=== PATIENT | male | born 1950 | race Caucasian/White ===

== ENCOUNTER 2019-01-10 19:12 | Inpatient (IN) | payer MEDICARE, OTHER ==
[2019-01-10] MEDS ORDERED: Albuterol 0.083% 2.5 MG/3 ML Neb Soln NEB ONE (20:02)
--- NOTE | 2019-01-10 20:07 | EDM.PDOC ---
ED HPI GENERAL MEDICAL PROBLEM - General Chief Complaint: Cardiovascular Problem Stated Complaint: [facility] Time Seen by Provider: 01/10/19 20:01 Source of Information: Reports: Patient, Family History Limitations: Reports: No Limitations - History of Present Illness INITIAL COMMENTS - FREE TEXT/NARRATIVE: 68 yo M w/ h/o COPD brought in via ambulance for SOB and confusion, feels like "I'm not getting enough air". He is chronically on O2 at home, 4L NC. He thinks he was 84% on O2 earlier today. Here, he was 100% on 4L O2 via nasal cannula- we have turned it down to 2L 02 and he is now 93%. He has a h/o of being air transported to [place] and has refused to be on lung transplant list. No other history is able to be obtained at this time as the patient is confused. Son told nursing that pt was acting more confused; pt is unaware of his confusion at this time. He is A+O x 3. - Related Data Allergies Allergy/AdvReac Type Severity Reaction Status Date / Time No Known Allergies Allergy Verified 05/23/18 13:54 Home Meds: Home Meds Ipratropium/Albuterol Sulfate [Iprat-Albut 0.5-3(2.5) mg/3 ml] 3 ml INH QID [History] Metoprolol Succinate 50 mg PO DAILY 05/23/18 [History] Pantoprazole [ProTONIX] 40 mg PO DAILY 05/23/18 [History] atorvaSTATin [Lipitor] 10 mg PO BEDTIME 05/23/18 [History] predniSONE [Prednisone] 20 mg PO DAILY 05/23/18 [History] Albuterol Sulfate [Albuterol Sulfate Hfa] 2 puff INH ASDIRECTED 01/10/19 [ History] Metoprolol Succinate 50 mg PO DAILY 01/10/19 [History] Ubidecarenone [Coq-10] 100 mg PO DAILY 01/10/19 [History] Past Medical History HEENT History: Reports: Impaired Vision Cardiovascular History: Reports: High Cholesterol, Hypertension Respiratory History: Reports: COPD Other Respiratory History: lung disease, wears continuous oxygen Gastrointestinal History: Reports: GERD - Past Surgical History GI Surgical History: Reports: Hernia Repair/Other Social & Family History - Family History Family Medical History: Noncontributory - Tobacco Use Smoking Status *Q: Former Smoker Used Tobacco, but Quit: Yes Month/Year Tobacco Last Used: 7 yrs - Caffeine Use Caffeine Use: Reports: Coffee, Tea - Recreational Drug Use Recreational Drug Use: No - Living Situation & Occupation Living situation: Reports: , with Spouse, with Family (2 sons) Occupation: Retired ED ROS GENERAL - Review of Systems Review Of Systems: Unable To Obtain (AMS) ED EXAM, GENERAL - Physical Exam Exam: See Below Exam Limited By: Altered Mental Status (confused; unable to get meaningful history) General Appearance: Alert (A+O x3; unable to make sense with giving history), Mild Distress Eye Exam: Bilateral Eye: EOMI, Normal Inspection, PERRL Ears: Normal External Exam, Hearing Grossly Normal Throat/Mouth: Normal Inspection, Normal Lips, Normal Teeth, Normal Gums, Normal Oropharynx, Normal Voice, No Airway Compromise Head: Atraumatic, Normocephalic Neck: Normal Inspection, Supple, Non-Tender, Full Range of Motion Respiratory/Chest: Chest Non-Tender, Respiratory Distress (mild to moderate), Wheezing (throughout lung cadet) GI/Abdominal: Normal Bowel Sounds, Soft, Non-Tender, No Organomegaly, No Distention, No Abnormal Bruit, No Mass Back Exam: Normal Inspection Neurological: Alert, Oriented (x3), Confused (unable to make sense with giving history) Psychiatric: Normal Affect, Normal Mood Course - Vital Signs Last Recorded V/S: Last Vital Signs Temp 97.6 F 01/10/19 19:40 Pulse 86 01/10/19 19:40 Resp 20 01/10/19 19:40 BP 154/119 H 01/10/19 19:40 Pulse Ox 96 01/10/19 20:09 - Orders/Labs/Meds Orders: Active Orders 24 hr Category Date Time Status Admission Status [Patient Status] [ADT] Routine ADT 01/10/19 22:38 Active BIPAP [RT BiPAP/CPAP] [RC] ASDIRECTED Care 01/10/19 22:38 Active RT Aerosol Therapy [RC] ASDIRECTED Care 01/10/19 20:02 Active CXR [Chest 2V] [CR] Stat Exams 01/10/19 20:04 Taken Head wo Cont [CT] Stat Exams 01/10/19 22:33 Ordered BLOOD GAS ARTERIAL [BG] Stat Lab 01/10/19 20:32 Results Labs: Laboratory Tests 01/10/19 01/10/19 01/10/19 Range/Units 19:30 19:30 20:32 WBC 12.25 H (4.23-9.07) K/mm3 RBC 5.48 (4.63-6.08) M/mm3 Hgb 15.3 (13.7-17.5) gm/L Hct 53.2 H (40.1-51.0) % MCV 97.1 H (79.0-92.2) fl MCH 27.9 (25.7-32.2) pg MCHC 28.8 L (32.2-35.5) g/dl RDW Std Deviation 50.3 H (35.1-43.9) fL Plt Count 145 L (163-337) K/mm3 MPV 11.7 (9.4-12.3) fl Neut % (Auto) 88.0 H (34.0-67.9) % Lymph % (Auto) 8.0 L (21.8-53.1) % [place] % (Auto) 3.3 L (5.3-12.2) % Eos % (Auto) 0.1 L (0.8-7.0) Baso % (Auto) 0.1 (0.1-1.2) % Neut # (Auto) 10.79 H (1.78-5.38) K/mm3 Lymph # (Auto) 0.98 L (1.32-3.57) K/mm3 [place] # (Auto) 0.40 (0.30-0.82) K/mm3 Eos # (Auto) 0.01 L (0.04-0.54) K/mm3 Baso # (Auto) 0.01 (0.01-0.08) K/mm3 Neutrophils % (Manual) 92 H (40-60) % Band Neutrophils % 0 (0-10) % Lymphocytes % (Manual) 3 L (20-40) % Atypical Lymphs % 0 % Monocytes % (Manual) 5 (2-10) % Eosinophils % (Manual) 0 L (0.8-7.0) % Basophils % (Manual) 0 L (0.2-1.2) Manual Slide Review Abnormal smear Platelet Estimate Adequate Plt Morphology Comment Normal Stomatocytes 3+ marked RBC Morph Comment Not Reportable Puncture Site Rt radial ABG pH 7.28 L (7.35-7.45) ABG pCO2 93.6 H* (35.0-45.0) mmHg ABG pO2 58.0 L (80.0-100.0) mmHg ABG HCO3 42.7 H (22.0-26.0) meq/L ABG O2 Saturation 89.0 L (96.0-97.0) % ABG Base Excess 10.5 H (-2-2.0) A-a Gradient 4 mmHg O2 Delivery Device Nasal cannula Oxygen Flow Rate 2.0 FiO2 28.00 (21.00-100.00) % Sodium 141 (136-145) mEq/L Potassium 5.7 H (3.5-5.1) mEq/L Chloride 99 (98-107) mEq/L Carbon Dioxide 45 H* (21-32) mEq/L Anion Gap 2.7 L (5-15) BUN 20 H (7-18) mg/dL Creatinine 1.1 (0.7-1.3) mg/dL Est Cr Clr Drug Dosing 67.29 mL/min Estimated GFR (MDRD) > 60 (>60) mL/min BUN/Creatinine Ratio 18.2 H (14-18) Glucose 107 (80-115) mg/dL Calcium 9.6 (8.5-10.1) mg/dL Total Bilirubin 0.5 (0.2-1.0) mg/dL AST 14 L (15-37) U/L ALT 35 (16-63) U/L Alkaline Phosphatase 50 (46-116) U/L Total Protein 7.3 (6.4-8.2) g/dl Albumin 3.7 (3.4-5.0) g/dl Globulin 3.6 gm/dL Albumin/Globulin Ratio 1.0 (1-2) Mycoplasma pneumon IgM Negative (NEGATIVE) Meds: Medications Discontinued Medications Generic Name Dose Route Start Last Admin Trade Name Freq PRN Reason Stop Dose Admin Albuterol 2.5 mg 01/10/19 20:02 01/10/19 20:08 Proventil Neb Soln NEB 01/10/19 20:03 2.5 mg ONETIME ONE Administration Methylprednisolone Sodium Succinate 60 mg 01/10/19 22:33 Solu-Medrol IVPUSH 01/10/19 22:34 ONETIME ONE - Re-Assessments/Exams Free Text/Narrative Re-Assessment/Exam: 01/10/19 20:05 I have ordered CBC, CMP, ABG, Mycoplasma Albuterol nebulizer treatment 2V CXR pending 01/10/19 20:47 CBC shows elevated WBC at 12.25, no bandemia. CMP shows elevated K at 5.7 and increased CO2 45 CXR reviewed by myself and Dr. Brooks, nothing acute seen ABG and Mycoplasma pending 01/10/19 21:[address] Brooks and myself, shows acute on chronic respiratory acidosis with hypoxia. COPD exacerbation. Will start BiPAP Mycoplasma negative There doesn't seem to be a clear source for his new onset confusion. Will call our hospitalist to see if he can get a full workup for his confusion. 01/10/19 22:[address] Park and he has accepted the patient for COPD exacerbation and AMS. He requests he get a head CT, 60mg Solumedrol, and that he be admitted to ICU. Departure - Departure Time of Disposition: 22:36 Disposition: Admitted As Inpatient 67 Condition: Fair Clinical Impression: Hypoxia, COPD exacerbation, Altered mental status, Hypercapnia Referrals: Debi Braxton PA [Primary Care Provider] - Forms: ED Department Discharge - My Orders Last 24 Hours: My Active Orders 01/10/19 20:02 RT Aerosol Therapy [RC] ASDIRECTED 01/10/19 20:04 CXR [Chest 2V] [CR] Stat 01/10/19 20:32 BLOOD GAS ARTERIAL [BG] Stat 01/10/19 22:33 Head wo Cont [CT] Stat 01/10/19 22:38 Admission Status [Patient Status] [ADT] Routine BIPAP [RT BiPAP/CPAP] [RC] ASDIRECTED - Assessment/Plan Last 24 Hours: My Active Orders 01/10/19 20:02 RT Aerosol Therapy [RC] ASDIRECTED 01/10/19 20:04 CXR [Chest 2V] [CR] Stat 01/10/19 20:32 BLOOD GAS ARTERIAL [BG] Stat 01/10/19 22:33 Head wo Cont [CT] Stat 01/10/19 22:38 Admission Status [Patient Status] [ADT] Routine BIPAP [RT BiPAP/CPAP] [RC] ASDIRECTED
[2019-01-10] MEDS ORDERED: methylPREDNISolone Sodium Succinate 40 MG/1 ML SDV IVPUSH ONE (22:33)
[2019-01-10] MEDS ORDERED: Metoprolol Tartrate 5 MG/5 ML SDV IVPUSH PRN (23:11)
[2019-01-10] MEDS ORDERED: LORazepam 2 MG/ML SDV IVPUSH PRN (23:11)
[2019-01-10] MEDS ORDERED: hydrALAZINE 20 MG/ML SDV IVPUSH PRN (23:11)
[2019-01-10] MEDS ORDERED: Diltiazem 50 MG/10 ML SDV IVPUSH PRN (23:13)
[2019-01-10] MEDS ORDERED: Morphine 2 MG/ML Syringe IVPUSH PRN (23:20)
[2019-01-10] MEDS ORDERED: Acetaminophen/HYDROcodone 325-5 MG Tab PO PRN (23:20)
[2019-01-10] MEDS ORDERED: Ondansetron 4 MG/2 ML SDV IV PRN (23:24)
[2019-01-10] MEDS ORDERED: Polyethylene Glycol 3350 Powder 17 GM Packet PO PRN (23:24)
[2019-01-10] MEDS ORDERED: Docusate Sodium 100 MG Cap PO PRN (23:24)
[2019-01-10] MEDS ORDERED: Temazepam 7.5 MG Cap PO PRN (23:24)
[2019-01-10] MEDS ORDERED: LORazepam 2 MG/ML SDV IV PRN (23:24)
[2019-01-10] MEDS ORDERED: Pantoprazole 40 MG Vial IVPUSH ONE (23:24)
[2019-01-10] MEDS ORDERED: Bisacodyl 5 MG Tab PO PRN (23:24)
[2019-01-10] MEDS ORDERED: Albuterol/Ipratropium 3.0-0.5 MG/3 ML Neb Soln NEB PRN (23:24)
[2019-01-10] MEDS ORDERED: Azithromycin 250 MG in Sodium Chloride 0.9% 250 ML IV ONE (23:31)
[2019-01-10] MEDS ORDERED: Non-Formulary Medication 1 Each (Acetaminophen 1,000 MG) PO PRN (23:36)
[2019-01-10] MEDS ORDERED: 50% Dextrose in Water 50 ML Syringe IVPUSH PRN (23:44)
[2019-01-11] MEDS: methylPREDNISolone Sodium Succinate 40 MG/1 ML SDV IVPUSH SCH ×4 (04:08→21:38)
[2019-01-11] MEDS ORDERED: ALENDRONATE SODIUM 5 MG PO SCH (06:00)
[2019-01-11] MEDS: guaiFENesin/Dextromethorphan 100-10 MG/5 ML Soln 5 ML Cup PO SCH ×4 (06:33→21:37)
[2019-01-11] MEDS: Pantoprazole 40 MG Tab.CR PO SCH (06:34)
--- NOTE | 2019-01-11 06:55 | CR ---
Chest: Two views of the chest were obtained. Comparison: Prior chest x-ray of 05/23/18. Diaphragms are flattened on the lateral view compatible with emphysematous change. Mildly increased lung markings are seen which appear to be chronic. No acute parenchymal change is appreciated. Heart size appears within normal limits. Upper mediastinum is normal. Bony structures show slight degenerative endplate spurring throughout the spine. Impression: 1. Emphysematous change. 2. Other chronic appearing changes as noted above. Diagnostic code #3
--- NOTE | 2019-01-11 06:55 | CT ---
Head CT Technique: Multiple axial sections through the brain were obtained. Intravenous contrast was not utilized. Comparison: No prior intracranial imaging. Findings: Ventricles along the basal cisterns and sulci over the convexities appear mildly prominent. No abnormal parenchymal densities are seen. No evidence of intracranial hemorrhage. No midline shift or mass effect is seen. Bone window settings were reviewed which show the visualized sinuses to appear clear. No acute calvarial abnormality is seen. Impression: 1. Nothing acute is seen on noncontrast head CT exam. Diagnostic code #1 I agree with preliminary report from [facility], finalized on 01/11/19, 1:36 AM Central Time
[2019-01-11] MEDS: Glycopyrrolate 15.6 MCG Cap.W.Dev Kit of 6 IH SCH ×2 (06:58→20:13)
--- NOTE | 2019-01-11 07:44 | PCM.HP ---
H&P History of Present Illness - General Date of Service: 01/11/19 Admit Problem/Dx: Admission Diagnosis/Problem Admission Diagnosis/Problem COPD, Moderate chronic obstructive pulmonary disease Source of Information: Patient, Old Records, Provider, RN, RN Notes Reviewed History Limitations: Reports: No Limitations - History of Present Illness Initial Comments - Free Text/Narative: Isiah Dowling is a 68 yo male who presents via ambulance to our ED the evening of 01/10/19 with a complaint of shortness of breath and confusion. 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 He reportedly took his saturations earlier and was found to be 84% on O2. On presentation he was 100% on 4 L via cannula and this was turned down to 2 L which resulted 93% saturations. On his last ED visit he was transported via air ambulance to [place] after being intubated. Has refused to be on a lung transplant list. He is quite confused in the ED and son reports this is worse than normal. He is unaware of how confused he is. In the ED temperature is 97.6 Fahrenheit. Pulse 86. Respirations 20. Blood pressure 154/119. Pulse ox 96%. Labs are obtained: WBC is elevated at 12.25. Hemoglobin 15.3. Hematocrit 53.2. He is macrocytic. Platelet are low at 154, 000. Neutrophils are elevated at 80%. There is no bandemia. ABGs obtained in the right radial showing a pH of 7.28. PCO2 is very high at 93.6. PO2 is 58.0. HCO3 is 42.7. O2 saturation is 89%. This is well on 2 L via nasal cannula. Sodium is 141. Potassium 5.7. Chloride 99. Code accident 45. Anion gap is 2.7. BUN is 20. Creatinine 1.1. EGFR greater than 60. Glucose 107. Calcium 9.6. Bilirubin 0.5. AST is 14, ALT 35, alkaline phosphatase 50. Protein 7.3. Albumin 3.7. Given albuterol nebulizer as well as 60 mg IV push of Solu-Medrol. Mycoplasma was obtained and is negative. Chest x-rays obtained and interpreted by Dr. Aparicio as "1. Emphysematous change. 2. Other chronic appearing changes as noted above." Head CT is obtained showing nothing acute. He carries a history of impaired vision, HLD, HTN, COPD, continues O2 use, GERD. He is a former smoker. His PCP is Neville Braxton PA-C. - Related Data Allergies/Adverse Reactions: Allergies Allergy/AdvReac Type Severity Reaction Status Date / Time No Known Allergies Allergy Verified 01/10/19 23:36 Home Medications: Home Meds Ipratropium/Albuterol Sulfate [Iprat-Albut 0.5-3(2.5) mg/3 ml] 3 ml INH QID [History] Metoprolol Succinate 50 mg PO DAILY 05/23/18 [History] Pantoprazole [ProTONIX] 40 mg PO DAILY 05/23/18 [History] atorvaSTATin [Lipitor] 10 mg PO BEDTIME 05/23/18 [History] predniSONE [Prednisone] 20 mg PO DAILY 05/23/18 [History] Acetaminophen [Tylenol Extra Strength] 1,000 mg PO DAILY PRN 01/10/19 [History] Albuterol Sulfate [Albuterol Sulfate Hfa] 2 puff INH ASDIRECTED 01/10/19 [ History] Alendronate Sodium [Alendronate] 5 mg PO ACBREAKFAST 01/10/19 [History] Ubidecarenone [Coq-10] 100 mg PO DAILY 01/10/19 [History] Past Medical History HEENT History: Reports: Impaired Vision Cardiovascular History: Reports: High Cholesterol, Hypertension Respiratory History: Reports: COPD Other Respiratory History: lung disease, wears continuous oxygen Gastrointestinal History: Reports: GERD Musculoskeletal History: Reports: None Neurological History: Reports: None - Past Surgical History GI Surgical History: Reports: Hernia Repair/Other Social & Family History - Family History Family Medical History: Noncontributory - Tobacco Use Smoking Status *Q: Former Smoker Used Tobacco, but Quit: Yes Month/Year Tobacco Last Used: 7 yrs Second Hand Smoke Exposure: Yes - Caffeine Use Caffeine Use: Reports: Coffee, Tea - Alcohol Use Days Per Week of Alcohol Use: 1 Number of Drinks Per Day: 0 Total Drinks Per Week: 0 - Recreational Drug Use Recreational Drug Use: No - Living Situation & Occupation Living situation: Reports: , with Spouse, with Family (2 sons) Occupation: Retired H&P Review of Systems - Review of Systems: Review Of Systems: See Below General: Reports: Weakness. Denies: Fever, Chills, Malaise, Fatigue HEENT: Reports: No Symptoms. Denies: Headaches, Sore Throat, Visual Changes Pulmonary: Reports: Shortness of Breath, Wheezing. Denies: Pleuritic Chest Pain , Cough, Sputum Cardiovascular: Reports: Dyspnea on Exertion, Edema. Denies: Chest Pain, Palpitations, Lightheadedness Gastrointestinal: Reports: No Symptoms. Denies: Abdominal Pain, Constipation, Diarrhea, Nausea, Vomiting Genitourinary: Reports: No Symptoms. Denies: Pain Musculoskeletal: Reports: No Symptoms Skin: Reports: No Symptoms. Denies: Cyanosis Psychiatric: Reports: No Symptoms. Denies: Confusion (resolved on floor ) Neurological: Reports: No Symptoms Hematologic/Lymphatic: Reports: No Symptoms Immunologic: Reports: No Symptoms Exam - Exam Exam: See Below - Vital Signs Vital Signs: Last Vital Signs Temp 97.2 F 01/11/19 04:00 Pulse 84 01/10/19 23:14 Resp 18 01/11/19 04:00 BP 137/92 H 01/11/19 04:00 Pulse Ox 97 01/11/19 06:58 Weight: 222 lb - Exam Quality Assessment: Supplemental Oxygen (BiPAP), DVT Prophylaxis General: Alert, Oriented, Cooperative. No: Mild Distress HEENT: Conjunctiva Clear, EACs Clear, EOMI, Hearing Intact, Mucosa Moist & [place] , Nares Patent, Normal Nasal Septum, PERRLA Neck: Supple, Trachea Midline Lungs: Normal Respiratory Effort, Decreased Breath Sounds, Wheezing. No: Crackles, Rhonchi Cardiovascular: Regular Rate, Regular Rhythm GI/Abdominal Exam: Normal Bowel Sounds, Soft, Non-Tender, No Distention, No Abnormal Bruit (Male) Exam: Deferred Rectal (Males) Exam: Deferred Back Exam: Normal Inspection, Full Range of Motion Extremities: Normal Inspection, Normal Range of Motion, Non-Tender, Normal Capillary Refill, Pedal Edema (1+) Peripheral Pulses: 1+: Dorsalis Pedis (L), Dorsalis Pedis (R), 2+: Radial (L), Radial (R) Skin: Warm, Dry, Intact Neurological: Cranial Nerves Intact (grossly) Neuro Extensive - Mental Status: Alert, Oriented x3, Normal Mood/Affect - Patient Data Lab Results Last 24 hrs: Laboratory Results - last 24 hr 01/10/19 01/10/19 01/10/19 Range/Units 19:30 19:30 20:32 WBC 12.25 H (4.23-9.07) K/mm3 RBC 5.48 (4.63-6.08) M/mm3 Hgb 15.3 (13.7-17.5) gm/L Hct 53.2 H (40.1-51.0) % MCV 97.1 H (79.0-92.2) fl MCH 27.9 (25.7-32.2) pg MCHC 28.8 L (32.2-35.5) g/dl RDW Std Deviation 50.3 H (35.1-43.9) fL Plt Count 145 L (163-337) K/mm3 MPV 11.7 (9.4-12.3) fl Neut % (Auto) 88.0 H (34.0-67.9) % Lymph % (Auto) 8.0 L (21.8-53.1) % [place] % (Auto) 3.3 L (5.3-12.2) % Eos % (Auto) 0.1 L (0.8-7.0) Baso % (Auto) 0.1 (0.1-1.2) % Neut # (Auto) 10.79 H (1.78-5.38) K/mm3 Lymph # (Auto) 0.98 L (1.32-3.57) K/mm3 [place] # (Auto) 0.40 (0.30-0.82) K/mm3 Eos # (Auto) 0.01 L (0.04-0.54) K/mm3 Baso # (Auto) 0.01 (0.01-0.08) K/mm3 Neutrophils % (Manual) 92 H (40-60) % Band Neutrophils % 0 (0-10) % Lymphocytes % (Manual) 3 L (20-40) % Atypical Lymphs % 0 % Monocytes % (Manual) 5 (2-10) % Eosinophils % (Manual) 0 L (0.8-7.0) % Basophils % (Manual) 0 L (0.2-1.2) Manual Slide Review Abnormal smear Platelet Estimate Adequate Plt Morphology Comment Normal Stomatocytes 3+ marked RBC Morph Comment Not Reportable Puncture Site Rt radial ABG pH 7.28 L (7.35-7.45) ABG pCO2 93.6 H* (35.0-45.0) mmHg ABG pO2 58.0 L (80.0-100.0) mmHg ABG HCO3 42.7 H (22.0-26.0) meq/L ABG O2 Saturation 89.0 L (96.0-97.0) % ABG Base Excess 10.5 H (-2-2.0) Gianni Test A-a Gradient 4 mmHg O2 Delivery Device Nasal cannula Oxygen Flow Rate 2.0 FiO2 28.00 (21.00-100.00) % PEEP cmH20 Pressure Support cmH2O Sodium 141 (136-145) mEq/L Potassium 5.7 H (3.5-5.1) mEq/L Chloride 99 (98-107) mEq/L Carbon Dioxide 45 H* (21-32) mEq/L Anion Gap 2.7 L (5-15) BUN 20 H (7-18) mg/dL Creatinine 1.1 (0.7-1.3) mg/dL Est Cr Clr Drug Dosing 67.29 mL/min Estimated GFR (MDRD) > 60 (>60) mL/min BUN/Creatinine Ratio 18.2 H (14-18) Glucose 107 (80-115) mg/dL Calcium 9.6 (8.5-10.1) mg/dL Magnesium (1.8-2.4) mg/dl Total Bilirubin 0.5 (0.2-1.0) mg/dL AST 14 L (15-37) U/L ALT 35 (16-63) U/L Alkaline Phosphatase 50 (46-116) U/L C-Reactive Protein (<1.0) mg/dL Total Protein 7.3 (6.4-8.2) g/dl Albumin 3.7 (3.4-5.0) g/dl Globulin 3.6 gm/dL Albumin/Globulin Ratio 1.0 (1-2) Mycoplasma pneumon IgM Negative (NEGATIVE) 01/11/19 01/11/19 01/11/19 Range/Units 05:25 05:25 06:40 WBC 11.05 H (4.23-9.07) K/mm3 RBC 5.00 (4.63-6.08) M/mm3 Hgb 14.1 (13.7-17.5) gm/L Hct 48.2 (40.1-51.0) % MCV 96.4 H (79.0-92.2) fl MCH 28.2 (25.7-32.2) pg MCHC 29.3 L (32.2-35.5) g/dl RDW Std Deviation 49.3 H (35.1-43.9) fL Plt Count 132 L (163-337) K/mm3 MPV 12.3 (9.4-12.3) fl Neut % (Auto) 94.2 H (34.0-67.9) % Lymph % (Auto) 4.3 L (21.8-53.1) % [place] % (Auto) 1.0 L (5.3-12.2) % Eos % (Auto) 0 L (0.8-7.0) Baso % (Auto) 0.1 (0.1-1.2) % Neut # (Auto) 10.42 H (1.78-5.38) K/mm3 Lymph # (Auto) 0.47 L (1.32-3.57) K/mm3 [place] # (Auto) 0.11 L (0.30-0.82) K/mm3 Eos # (Auto) 0.00 L (0.04-0.54) K/mm3 Baso # (Auto) 0.01 (0.01-0.08) K/mm3 Neutrophils % (Manual) (40-60) % Band Neutrophils % (0-10) % Lymphocytes % (Manual) (20-40) % Atypical Lymphs % % Monocytes % (Manual) (2-10) % Eosinophils % (Manual) (0.8-7.0) % Basophils % (Manual) (0.2-1.2) Manual Slide Review Abnormal smear Platelet Estimate Plt Morphology Comment Stomatocytes RBC Morph Comment Puncture Site Rt radial ABG pH 7.30 L (7.35-7.45) ABG pCO2 92.1 H* (35.0-45.0) mmHg ABG pO2 100.0 (80.0-100.0) mmHg ABG HCO3 43.6 H (22.0-26.0) meq/L ABG O2 Saturation 96.1 (96.0-97.0) % ABG Base Excess 12.8 H (-2-2.0) Gianni Test Positive A-a Gradient 41 mmHg O2 Delivery Device Bipap Oxygen Flow Rate FiO2 0.00 L (21.00-100.00) % PEEP 5.0 cmH20 Pressure Support 14.0 cmH2O Sodium 142 (136-145) mEq/L Potassium 5.0 (3.5-5.1) mEq/L Chloride 102 (98-107) mEq/L Carbon Dioxide 42 H* (21-32) mEq/L Anion Gap 3.0 L (5-15) BUN 30 H (7-18) mg/dL Creatinine 0.9 (0.7-1.3) mg/dL Est Cr Clr Drug Dosing 82.24 mL/min Estimated GFR (MDRD) > 60 (>60) mL/min BUN/Creatinine Ratio 33.3 H (14-18) Glucose 155 H (80-115) mg/dL Calcium 9.3 (8.5-10.1) mg/dL Magnesium 2.3 (1.8-2.4) mg/dl Total Bilirubin (0.2-1.0) mg/dL AST (15-37) U/L ALT (16-63) U/L Alkaline Phosphatase (46-116) U/L C-Reactive Protein < 0.2 (<1.0) mg/dL Total Protein (6.4-8.2) g/dl Albumin (3.4-5.0) g/dl Globulin gm/dL Albumin/Globulin Ratio (1-2) Mycoplasma pneumon IgM (NEGATIVE) Result Diagrams: 01/11/19 05:25 01/11/19 05:25 - Problem List (1) Altered mental status SNOMED Code(s): 642328276 ICD Code: R41.82 - ALTERED MENTAL STATUS, UNSPECIFIED Status: Acute Priority: High Current Visit: Yes Qualifiers: Altered mental status type: unspecified Qualified Code(s): R41.82 - Altered mental status, unspecified (2) COPD exacerbation SNOMED Code(s): 658221395 ICD Code: J44.1 - CHRONIC OBSTRUCTIVE PULMONARY DISEASE W (ACUTE) EXACERBATION Status: Acute Priority: High Current Visit: Yes (3) Hypercapnia SNOMED Code(s): 42278466 ICD Code: R06.89 - OTHER ABNORMALITIES OF BREATHING Status: Acute Priority: High Current Visit: Yes (4) Hypoxia SNOMED Code(s): 361871745 ICD Code: R09.02 - HYPOXEMIA Status: Acute Priority: High Current Visit : Yes Problem List Initiated/Reviewed/Updated: Yes Orders Last 24hrs: Active Orders 24 hr Category Date Time Status Admission Status [Patient Status] [ADT] Routine ADT 01/10/19 22:38 Active Ambulate [RC] ASDIRECTED Care 01/10/19 23:14 Active Antiembolic Devices [RC] , Care 01/10/19 23:24 Active BIPAP [RT BiPAP/CPAP] [RC] .ASDIRECTED Care 01/10/19 22:38 Active Cardiac Monitoring [RC] . DIRECTED Care 01/10/19 23:14 Active Height and Weight [RC] 04 Care 01/10/19 23:14 Active Intake and Output [RC] 04,16 Care 01/10/19 23:14 Active Oxygen Therapy [RC] PRN Care 01/10/19 23:14 Active Pulse Oximetry [RC] .ASDIRECTED Care 01/10/19 23:15 Active RT Aerosol Therapy [RC] .ASDIRECTED Care 01/10/19 23:38 Active RT Aerosol Therapy [RC] ASDIRECTED Care 01/10/19 23:26 Active Up ad Rosalinda [RC] .ASDIRECTED Care 01/10/19 23:14 Active VTE/DVT Education [RC] 09,21 Care 01/10/19 23:14 Active Vital Signs [RC] Q4HR Care 01/10/19 23:14 Active Consult to Case Management/[place] Helper [CONS] Cons 01/10/19 23:24 Active Routine Consult to Spiritual Care [CONS] Routine Cons 01/10/19 23:24 Active OT Evaluation and Treatment [CONS] Routine Cons 01/10/19 23:24 Active PT Evaluation and Treatment [CONS] Routine Cons 01/10/19 23:24 Active Respiratory Care Assess and Treatment [CONS] Routine Cons 01/10/19 23:24 Active Regular Diet [DIET] Diet 01/10/19 Dinner Active BASIC METABOLIC PANEL,BMP [CHEM] AM Lab 01/12/19 05:11 Ordered BASIC METABOLIC PANEL,BMP [CHEM] AM Lab 01/13/19 05:11 Ordered BASIC METABOLIC PANEL,BMP [CHEM] AM Lab 01/14/19 05:11 Ordered BLOOD GAS ARTERIAL [BG] DAILY Lab 01/12/19 07:00 Ordered BLOOD GAS ARTERIAL [BG] DAILY Lab 01/13/19 07:00 Ordered C-REACTIVE PROTEIN [CHEM] AM Lab 01/12/19 05:11 Ordered C-REACTIVE PROTEIN [CHEM] AM Lab 01/13/19 05:11 Ordered C-REACTIVE PROTEIN [CHEM] AM Lab 01/14/19 05:11 Ordered CULTURE SPUTUM + SMEAR [RM] Stat Lab 01/10/19 23:24 Ordered MAGNESIUM [CHEM] AM Lab 01/12/19 05:11 Ordered MAGNESIUM [CHEM] AM Lab 01/13/19 05:11 Ordered MAGNESIUM [CHEM] AM Lab 01/14/19 05:11 Ordered RESPIRATORY PANEL Stat Lab 01/11/19 00:14 Received STREP PNEUMONIAE ANTIGEN [MREF] Stat Lab 01/11/19 07:00 Received Acetaminophen [Tylenol] Med 01/10/19 23:20 Active 650 mg PO Q4H PRN Acetaminophen/HYDROcodone [[place] 325-5 MG] Med 01/10/19 23:20 Active 1 tab PO Q4H PRN Albuterol/Ipratropium [DuoNeb 3.0-0.5 MG/3 ML] Med 01/11/19 08:00 Active 3 ml NEB BIDRT Albuterol/Ipratropium [DuoNeb 3.0-0.5 MG/3 ML] Med 01/10/19 23:24 Active 3 ml NEB Q4H PRN Azithromycin [Zithromax] Med 01/11/19 09:00 Active 250 mg PO DAILY Bisacodyl [Dulcolax] Med 01/10/19 23:24 Active 5 mg PO DAILY PRN Dextromethorphan/guaiFENesin [Robitussin DM] Med 01/11/19 07:00 Active 10 ml PO TID@0700,1400,2100 Dextrose 50% in Water Med 01/10/19 23:44 Active 50 ml IVPUSH ASDIRECTED PRN Diltiazem [Cardizem] Med 01/10/19 23:13 Active 10 mg IVPUSH Q4H PRN Docusate Sodium [Colace] Med 01/10/19 23:24 Active 100 mg PO BID PRN Docusate Sodium/Sennosides [Senna Plus] Med 01/10/19 23:24 Active 1 tab PO BID PRN Glycopyrrolate [Seebri Neohaler] Med 01/11/19 06:00 Active 15.6 mcg IH BIDRT Insulin Lispro [HumaLOG] Med 01/11/19 07:00 Active See Protocol SUBCUT QIDACANDBED LORazepam [Ativan] Med 01/10/19 23:24 Active 1 mg IV Q6H PRN LORazepam [Ativan] Med 01/10/19 23:11 Active 2 mg IVPUSH Q4H PRN Metoprolol Succinate [Toprol XL] Med 01/11/19 09:00 Active 50 mg PO DAILY Morphine Med 01/10/19 23:20 Active 2 mg IVPUSH Q2H PRN Ondansetron [Zofran] Med 01/10/19 23:24 Active 4 mg IV Q6H PRN Pantoprazole [ProTONIX] Med 01/11/19 07:00 Active 40 mg PO DAILY@0700 Patient's Own Medication [Ptom] Med 01/11/19 09:00 Active 0 each PO DAILY Pharmacy to Dose - Magnesium R [Pharmacy to Dose - Med 01/10/19 23:15 Active Magnesium Replacement] 1 dose .XX ASDIRECTED PRN Pharmacy to Dose - Potassium R [Pharmacy to Dose - Med 01/10/19 23:15 Active Potassium Replacement] 1 dose .XX ASDIRECTED PRN Polyethylene Glycol 3350 [MiraLAX] Med 01/10/19 23:24 Active 17 gm PO DAILY PRN Saccharomyces Boulardii [Florastor] Med 01/11/19 09:00 Active 250 mg PO DAILY Simvastatin [Zocor] Med 01/11/19 21:00 Active 10 mg PO BEDTIME Temazepam [Restoril] Med 01/10/19 23:24 Active 7.5 mg PO BEDTIME PRN Terbutaline [Brethine] Med 01/11/19 09:00 Active 2.5 mg PO BID hydrALAZINE [Apresoline] Med 01/10/19 23:11 Active 20 mg IVPUSH Q4H PRN methylPREDNISolone Sod Succ [Solu-MEDROL] Med 01/11/19 04:30 Active 80 mg IVPUSH Q6H Sequential Compression Device [OM.PC] Per Unit Routine Oth 01/10/19 23:15 Ordered Resuscitation Status Routine Resus Stat 01/10/19 23:11 Ordered Medication Orders Acetaminophen (Tylenol) 650 mg PO Q4H PRN PRN Reason: Pain (Mild 1-3)/fever Hydrocodone Bitart/Acetaminophen ([place] 325-5 Mg) 1 tab PO Q4H PRN PRN Reason: Pain (moderate 4-6) Albuterol/Ipratropium (Duoneb 3.0-0.5 Mg/3 Ml) 3 ml NEB Q4H PRN PRN Reason: Shortness Of Breath/wheezing Albuterol/Ipratropium (Duoneb 3.0-0.5 Mg/3 Ml) 3 ml NEB BIDRT [facility] Azithromycin (Zithromax) 250 mg PO DAILY [facility] Stop: 01/14/19 09:01 Bisacodyl (Dulcolax) 5 mg PO DAILY PRN PRN Reason: Constipation Dextrose/Water (Dextrose 50% In Water) 50 ml IVPUSH ASDIRECTED PRN PRN Reason: Hypoglycemia Diltiazem HCl (Cardizem) 10 mg IVPUSH Q4H PRN PRN Reason: Tachycardia Docusate Sodium (Colace) 100 mg PO BID PRN PRN Reason: Constipation Glycopyrrolate (Seebri Neohaler) 15.6 mcg IH BIDRT [facility] Last Admin: 01/11/19 06:58 Dose: 1 cap Guaifenesin/Phenylephrine HCl (Robitussin Dm) 10 ml PO TID@0700,1400,2100 [facility] Last Admin: 01/11/19 06:33 Dose: 10 ml Hydralazine HCl (Apresoline) 20 mg IVPUSH Q4H PRN PRN Reason: Hypertension Insulin Human Lispro (Humalog) 0 unit SUBCUT QIDACANDBED [facility]; Protocol Lorazepam (Ativan) 2 mg IVPUSH Q4H PRN PRN Reason: Seizures Lorazepam (Ativan) 1 mg IV Q6H PRN PRN Reason: Anxiety Magnesium Sulfate (Pharmacy To Dose - Magnesium Replacement) 1 dose .XX ASDIRECTED PRN PRN Reason: RX TO WATCH MAG LEVELS Methylprednisolone Sodium Succinate (Solu-Medrol) 80 mg IVPUSH Q6H [facility] Last Admin: 01/11/19 04:08 Dose: 80 mg Metoprolol Succinate (Toprol Xl) 50 mg PO DAILY [facility] Morphine Sulfate (Morphine) 2 mg IVPUSH Q2H PRN PRN Reason: Dyspnea Stop: 01/15/19 23:23 Ondansetron HCl (Zofran) 4 mg IV Q6H PRN PRN Reason: Nausea/Vomiting Pantoprazole Sodium (Protonix) 40 mg PO DAILY@0700 [facility] Last Admin: 01/11/19 06:34 Dose: 40 mg Ubidecarenone 100 Mg (Ptom) 0 each PO DAILY [facility] Polyethylene Glycol (Miralax) 17 gm PO DAILY PRN PRN Reason: Constipation Potassium Chloride (Pharmacy To Dose - Potassium Replacement) 1 dose .XX ASDIRECTED PRN PRN Reason: RX TO WATCH K LEVELS Saccharomyces Boulardii (Florastor) 250 mg PO DAILY [facility] Senna/Docusate Sodium (Senna Plus) 1 tab PO BID PRN PRN Reason: Constipation Simvastatin (Zocor) 10 mg PO BEDTIME BETTY Temazepam (Restoril) 7.5 mg PO BEDTIME PRN PRN Reason: Sleep Terbutaline Sulfate (Brethine) 2.5 mg PO BID [facility] Stop: 01/12/19 21:01 Assessment/Plan Comment:: I/P: Acute: COPD exacerbation with hypoxia -Hx/o severe COPD; Was intubated last ED visit -Chronically on 4L O2 -Reportedly refused to be placed on lung transplant list -Reported worsening dyspnea in ED -ABG in ED: pH of 7.28. PCO2 93.6. PO2 58.0. HCO3 42.7. O2 saturation 89 %. This is well on 2 L via nasal cannula. -ABG on Floor: PH 7.30, PCO2 92.1, PO2 100, HCO3 43.6, O2 saturation 96.1 while on BiPAP -60mg solumedrol given in ED -> continue 80mg Q6Hr -Duonebs/albuterol nebs scheduled and PRN -Azithromycin x 4 doses -TID robitussin DM scheduled -Glycopyrrolate 15.6 mcg IH BID -Terbutaline 2.5mg PO BID x4 doses -CXR: Emphysematous change with nothing acute -VRP pending -Mycoplasma negative. -Strep pneumo pending -O2 as needed -Sputum culture ordered -Start BiPAP -Pro-BNP 96 -Consult RT -Start IS/acapella once off BiPAP -WBC 12.25-->11.05; CRP >0.2 -Probiotic AMS -Family reports more confused than normal -Patient unaware how confused he is -Likely 2/2 above -Head CT negative Chronic: Impaired vision HLD HTN COPD Continuous O2 use at 4L GERD Plan: Admit to ICU Other orders as above Home medications as indicated PT/OT Obtain old records including PFT CM/SW for discharge planning Routine AM labs DVT Prophylaxis: SCDs GI prophylaxis: Home PPI Spiritual care consult Code status: Full code; PCP: Debi Braxton
[2019-01-11] MEDS: Albuterol/Ipratropium 3.0-0.5 MG/3 ML Neb Soln NEB SCH ×2 (08:41→20:13)
[2019-01-11] MEDS: Azithromycin 250 MG Tab PO SCH (08:52)
[2019-01-11] MEDS: Saccharomyces Boulardii (Probiotic) 250 MG Cap PO SCH (08:53)
[2019-01-11] MEDS: Metoprolol Succinate 50 MG Tab.ER PO SCH (08:53)
[2019-01-11] MEDS: UBIDECARENONE 100 MG PO SCH (08:53)
[2019-01-11] MEDS ORDERED: Tiotropium Inhaler 18 MCG Inhalation Powder Cap Kit of 5 INH SCH (09:00)
[2019-01-11] MEDS ORDERED: Non-Formulary Medication 1 Each (Ubidecarenone 100 MG) PO SCH (09:00)
[2019-01-11] MEDS: Insulin Lispro 100 Units/ML 3 ML Vial SUBCUT SCH ×4 (10:20→21:38)
[2019-01-11] MEDS ORDERED: HYDROmorphone 1 MG/ML Syringe IVPUSH PRN (12:47)
[2019-01-11] MEDS: Acetaminophen 325 MG Tab PO PRN (16:21)
[2019-01-11] MEDS: Simvastatin 10 MG Tab PO SCH ×2 (19:44→21:37)
[2019-01-11] MEDS ORDERED: Non-Formulary Medication 1 Each (Atorvastatin 10 MG) PO SCH (21:00)
[2019-01-12] MEDS: Albuterol/Ipratropium 3.0-0.5 MG/3 ML Neb Soln NEB SCH ×2 (05:50→20:03)
[2019-01-12] MEDS: Glycopyrrolate 15.6 MCG Cap.W.Dev Kit of 6 IH SCH ×2 (05:54→20:03)
[2019-01-12] MEDS: guaiFENesin/Dextromethorphan 100-10 MG/5 ML Soln 5 ML Cup PO SCH ×3 (06:00→20:41)
[2019-01-12] MEDS: Insulin Lispro 100 Units/ML 3 ML Vial SUBCUT SCH ×4 (06:01→21:11)
[2019-01-12] MEDS: methylPREDNISolone Sodium Succinate 40 MG/1 ML SDV IVPUSH SCH ×2 (06:01→15:16)
[2019-01-12] MEDS: Pantoprazole 40 MG Tab.CR PO SCH (06:02)
--- NOTE | 2019-01-12 07:36 | PCM.PN ---
- General Info Date of Service: 01/12/19 Admission Dx/Problem (Free Text): Admission Diagnosis/Problem Admission Diagnosis/Problem COPD, Moderate chronic obstructive pulmonary disease Subjective Update: In to see Myron. Wilson report he has not yet done steps and had some difficulty with ambulation today 2/2 weakness. We discussed this with the patient and relayed that he may benefit from a rehab stay. He is adamant against this and states he will gladly do outpatient or home health rehab but does not want placement. We discussed concerns over falls and his ability to care for himself at home and he is un-amenable to this. He otherwise continues to improve. ABG this AM showed much improvement with a CO2 of 61. He reports he has a CPAP at home but states he only wears it for 15 minutes a day to open his lungs. He reports this was how he was told to wear it from [facility]. We explained to him how he will likely need to wear it at night from here on out. He has been downgraded to MSP status. He requests he remain in the hospital until Tuesday and we discussed how he may be ready prior to then for discharge. Functional Status: Reports: Pain Controlled, Tolerating Diet, Ambulating, Urinating, Incentive Spirometry. Denies: New Symptoms - Review of Systems General: Reports: No Symptoms, Weakness. Denies: Fever, Fatigue, Malaise, Chills HEENT: Reports: No Symptoms. Denies: Headaches, Sore Throat Pulmonary: Reports: Shortness of Breath (reports currently at baseline ). Denies: Pleuritic Chest Pain, Cough, Sputum, Wheezing Cardiovascular: Reports: Dyspnea on Exertion (reports currently at baseline ). Denies: Chest Pain, Palpitations, Orthopnea, Edema Gastrointestinal: Reports: No Symptoms. Denies: Abdominal Pain, Constipation, Diarrhea, Nausea, Vomiting Genitourinary: Reports: No Symptoms. Denies: Pain Musculoskeletal: Reports: No Symptoms Skin: Reports: No Symptoms. Denies: Cyanosis Neurological: Reports: No Symptoms, Difficulty Walking, Weakness, Gait Disturbance. Denies: Confusion, Numbness, Seizure, Trouble Speaking, Change in Speech Psychiatric: Reports: No Symptoms - Patient Data Vitals - Most Recent: Last Vital Signs Temp 97.5 F 01/12/19 05:31 Pulse 81 01/12/19 05:31 Resp 22 H 01/12/19 05:31 BP 143/98 H 01/12/19 05:31 Pulse Ox 93 L 01/12/19 05:31 Weight - Most Recent: 225 lb I&O - Last 24 Hours: Intake & Output 01/11/19 01/12/19 01/12/19 22:59 06:59 14:59 Intake Total 630 800 Output Total 200 400 Balance 430 400 Lab Results Last 24 Hours: Laboratory Results - last 24 hr 01/11/19 01/11/19 01/11/19 Range/Units 00:14 10:08 15:33 Puncture Site ABG pH (7.35-7.45) ABG pCO2 (35.0-45.0) mmHg ABG pO2 (80.0-100.0) mmHg ABG HCO3 (22.0-26.0) meq/L ABG O2 Saturation (96.0-97.0) % ABG Base Excess (-2-2.0) Gianni Test A-a Gradient mmHg O2 Delivery Device FiO2 (21.00-100.00) % PEEP cmH20 Pressure Support cmH2O Sodium (136-145) mEq/L Potassium (3.5-5.1) mEq/L Chloride (98-107) mEq/L Carbon Dioxide (21-32) mEq/L Anion Gap (5-15) BUN (7-18) mg/dL Creatinine (0.7-1.3) mg/dL Est Cr Clr Drug Dosing mL/min Estimated GFR (MDRD) (>60) mL/min BUN/Creatinine Ratio (14-18) Glucose (80-115) mg/dL POC Glucose 228 H (80-115) mg/dL Calcium (8.5-10.1) mg/dL Magnesium (1.8-2.4) mg/dl C-Reactive Protein (<1.0) mg/dL NT-Pro-B Natriuret Pep 96 (0-125) pg/mL Adenovirus (PCR) Not detected (Not Detected) B. pertussis DNA (PCR) Not detected (Not Detected) B.parapertussis DNA PCR Not detected (Not Detected) C. pneumoniae DNA (PCR) Not detected (Not Detected) Coronavirus (PCR) Not detected (Not Detected) Human Metapneumovir PCR Not detected (Not Detected) Influenza A (RT-PCR) Not detected (Not Detected) Influenza B (RT-PCR) Not detected (Not Detected) M. pneumoniae (PCR) Not detected (Not Detected) Parainfluen 1,2,3,4 PCR Not detected (Not Detected) RSV (PCR) Not detected (Not Detected) Entero/Rhino (PCR) Not detected (Not Detected) 01/11/19 01/11/19 01/12/19 Range/Units 16:10 21:30 05:25 Puncture Site Lt radial ABG pH 7.37 (7.35-7.45) ABG pCO2 71.2 H* (35.0-45.0) mmHg ABG pO2 71.0 L (80.0-100.0) mmHg ABG HCO3 40.6 H (22.0-26.0) meq/L ABG O2 Saturation 93.3 L (96.0-97.0) % ABG Base Excess 12.5 H (-2-2.0) Gianni Test Positive A-a Gradient 32 mmHg O2 Delivery Device Bipap 14/7 FiO2 30.00 (21.00-100.00) % PEEP cmH20 Pressure Support cmH2O Sodium 143 (136-145) mEq/L Potassium 4.7 (3.5-5.1) mEq/L Chloride 101 (98-107) mEq/L Carbon Dioxide 40 H (21-32) mEq/L Anion Gap 6.7 (5-15) BUN 34 H (7-18) mg/dL Creatinine 1.2 (0.7-1.3) mg/dL Est Cr Clr Drug Dosing 61.68 mL/min Estimated GFR (MDRD) > 60 (>60) mL/min BUN/Creatinine Ratio 28.3 H (14-18) Glucose 154 H (80-115) mg/dL POC Glucose 188 H (80-115) mg/dL Calcium 9.3 (8.5-10.1) mg/dL Magnesium 2.2 (1.8-2.4) mg/dl C-Reactive Protein < 0.2 (<1.0) mg/dL NT-Pro-B Natriuret Pep (0-125) pg/mL Adenovirus (PCR) (Not Detected) B. pertussis DNA (PCR) (Not Detected) B.parapertussis DNA PCR (Not Detected) C. pneumoniae DNA (PCR) (Not Detected) Coronavirus (PCR) (Not Detected) Human Metapneumovir PCR (Not Detected) Influenza A (RT-PCR) (Not Detected) Influenza B (RT-PCR) (Not Detected) M. pneumoniae (PCR) (Not Detected) Parainfluen 1,2,3,4 PCR (Not Detected) RSV (PCR) (Not Detected) Entero/Rhino (PCR) (Not Detected) 01/12/19 01/12/19 Range/Units 05:25 06:25 Puncture Site Rt radial ABG pH 7.43 (7.35-7.45) ABG pCO2 61.3 H (35.0-45.0) mmHg ABG pO2 79.0 L (80.0-100.0) mmHg ABG HCO3 39.8 H (22.0-26.0) meq/L ABG O2 Saturation 95.2 L (96.0-97.0) % ABG Base Excess 12.9 H (-2-2.0) Gianni Test Positive A-a Gradient 36 mmHg O2 Delivery Device Bipap FiO2 30.00 (21.00-100.00) % PEEP 7.0 cmH20 Pressure Support 14.0 cmH2O Sodium (136-145) mEq/L Potassium (3.5-5.1) mEq/L Chloride (98-107) mEq/L Carbon Dioxide (21-32) mEq/L Anion Gap (5-15) BUN (7-18) mg/dL Creatinine (0.7-1.3) mg/dL Est Cr Clr Drug Dosing mL/min Estimated GFR (MDRD) (>60) mL/min BUN/Creatinine Ratio (14-18) Glucose (80-115) mg/dL POC Glucose 161 H (80-115) mg/dL Calcium (8.5-10.1) mg/dL Magnesium (1.8-2.4) mg/dl C-Reactive Protein (<1.0) mg/dL NT-Pro-B Natriuret Pep (0-125) pg/mL Adenovirus (PCR) (Not Detected) B. pertussis DNA (PCR) (Not Detected) B.parapertussis DNA PCR (Not Detected) C. pneumoniae DNA (PCR) (Not Detected) Coronavirus (PCR) (Not Detected) Human Metapneumovir PCR (Not Detected) Influenza A (RT-PCR) (Not Detected) Influenza B (RT-PCR) (Not Detected) M. pneumoniae (PCR) (Not Detected) Parainfluen 1,2,3,4 PCR (Not Detected) RSV (PCR) (Not Detected) Entero/Rhino (PCR) (Not Detected) Med Orders - Current: Current Medications Acetaminophen (Tylenol) 650 mg PO Q4H PRN PRN Reason: Pain (Mild 1-3)/fever Last Admin: 01/11/19 16:21 Dose: 650 mg Hydrocodone Bitart/Acetaminophen ([place] 325-5 Mg) 1 tab PO Q4H PRN PRN Reason: Pain (moderate 4-6) Albuterol/Ipratropium (Duoneb 3.0-0.5 Mg/3 Ml) 3 ml NEB Q4H PRN PRN Reason: Shortness Of Breath/wheezing Last Admin: 01/11/19 14:51 Dose: 3 ml Albuterol/Ipratropium (Duoneb 3.0-0.5 Mg/3 Ml) 3 ml NEB BIDRT [facility] Last Admin: 01/12/19 05:50 Dose: 3 ml Azithromycin (Zithromax) 250 mg PO DAILY [facility] Stop: 01/14/19 09:01 Last Admin: 01/11/19 08:52 Dose: 250 mg Bisacodyl (Dulcolax) 5 mg PO DAILY PRN PRN Reason: Constipation Dextrose/Water (Dextrose 50% In Water) 50 ml IVPUSH ASDIRECTED PRN PRN Reason: Hypoglycemia Diltiazem HCl (Cardizem) 10 mg IVPUSH Q4H PRN PRN Reason: Tachycardia Docusate Sodium (Colace) 100 mg PO BID PRN PRN Reason: Constipation Glycopyrrolate (Seebri Neohaler) 15.6 mcg IH BIDRT [facility] Last Admin: 01/12/19 05:54 Dose: 1 cap Guaifenesin/Phenylephrine HCl (Robitussin Dm) 10 ml PO TID@0700,1400,2100 [facility] Last Admin: 01/12/19 06:00 Dose: 10 ml Hydralazine HCl (Apresoline) 20 mg IVPUSH Q4H PRN PRN Reason: Hypertension Insulin Human Lispro (Humalog) 0 unit SUBCUT QIDACANDBED [facility]; Protocol Last Admin: 01/12/19 06:01 Dose: 2 units Lorazepam (Ativan) 2 mg IVPUSH Q4H PRN PRN Reason: Seizures Lorazepam (Ativan) 1 mg IV Q6H PRN PRN Reason: Anxiety Magnesium Sulfate (Pharmacy To Dose - Magnesium Replacement) 1 dose .XX ASDIRECTED PRN PRN Reason: RX TO WATCH MAG LEVELS Methylprednisolone Sodium Succinate (Solu-Medrol) 60 mg IVPUSH Q8H [facility] Last Admin: 01/12/19 06:01 Dose: 60 mg Metoprolol Succinate (Toprol Xl) 50 mg PO DAILY [facility] Last Admin: 01/11/19 08:53 Dose: 50 mg Morphine Sulfate (Morphine) 2 mg IVPUSH Q2H PRN PRN Reason: Dyspnea Stop: 01/15/19 23:23 Last Admin: 01/11/19 21:37 Dose: 2 mg Ondansetron HCl (Zofran) 4 mg IV Q6H PRN PRN Reason: Nausea/Vomiting Pantoprazole Sodium (Protonix) 40 mg PO DAILY@0700 [facility] Last Admin: 01/12/19 06:02 Dose: 40 mg Ubidecarenone 100 Mg (Ptom) 0 each PO DAILY [facility] Last Admin: 01/11/19 08:53 Dose: 1 each Polyethylene Glycol (Miralax) 17 gm PO DAILY PRN PRN Reason: Constipation Potassium Chloride (Pharmacy To Dose - Potassium Replacement) 1 dose .XX ASDIRECTED PRN PRN Reason: RX TO WATCH K LEVELS Saccharomyces Boulardii (Florastor) 250 mg PO DAILY [facility] Last Admin: 01/11/19 08:53 Dose: 250 mg Senna/Docusate Sodium (Senna Plus) 1 tab PO BID PRN PRN Reason: Constipation Simvastatin (Zocor) 10 mg PO BEDTIME [facility] Last Admin: 01/11/19 21:37 Dose: Not Given Temazepam (Restoril) 7.5 mg PO BEDTIME PRN PRN Reason: Sleep Terbutaline Sulfate (Brethine) 2.5 mg PO BID [facility] Stop: 01/12/19 21:01 Last Admin: 01/11/19 21:37 Dose: Not Given Discontinued Medications Albuterol (Proventil Neb Soln) 2.5 mg NEB ONETIME ONE Stop: 01/10/19 20:03 Last Admin: 01/10/19 20:08 Dose: 2.5 mg Azithromycin 250 mg/ Sodium (Chloride) 250 mls @ 250 mls/hr IV ONETIME ONE Stop: 01/11/19 00:30 Last Admin: 01/11/19 00:29 Dose: 250 mls/hr Methylprednisolone Sodium Succinate (Solu-Medrol) 60 mg IVPUSH ONETIME ONE Stop: 01/10/19 22:34 Last Admin: 01/10/19 23:14 Dose: 60 mg Methylprednisolone Sodium Succinate (Solu-Medrol) 80 mg IVPUSH Q6H [facility] Last Admin: 01/11/19 21:38 Dose: 80 mg Metoprolol Tartrate (Lopressor) 5 mg IVPUSH Q4H PRN PRN Reason: Tachycardia Non-Formulary Medication (Ubidecarenone) 100 mg PO DAILY BETTY Non-Formulary Medication (Acetaminophen) 1,000 mg PO DAILY PRN PRN Reason: Pain Non-Formulary Medication (Alendronate Sodium [Alendronate]) 5 mg PO ACBREAKFAST [facility] Last Admin: 01/11/19 07:36 Dose: Not Given Pantoprazole Sodium (Protonix Iv) 40 mg IVPUSH ONETIME ONE Stop: 01/10/19 23:25 Last Admin: 01/11/19 00:29 Dose: 40 mg - Exam Quality Assessment: Supplemental Oxygen, DVT Prophylaxis General: Alert, Oriented, Cooperative, No Acute Distress HEENT: Pupils Equal, Pupils Reactive, EOMI, Mucous Membr. Moist/[place] Neck: Supple, Trachea Midline, No JVD Lungs: Normal Respiratory Effort, Decreased Breath Sounds Cardiovascular: Regular Rate, Regular Rhythm GI/Abdominal Exam: Normal Bowel Sounds, Soft, Non-Tender, No Organomegaly, No Distention (Male) Exam: Deferred Back Exam: Normal Inspection, Full Range of Motion Extremities: Normal Inspection, Normal Range of Motion, Non-Tender, Normal Capillary Refill, Pedal Edema Peripheral Pulses: 1+: Dorsalis Pedis (L), Dorsalis Pedis (R), 2+: Radial (L), Radial (R) Skin: Warm, Dry, Intact Neurological: No New Focal Deficit Psy/Mental Status: Alert, Normal Affect, Normal Mood - Problem List & Annotations (1) Altered mental status SNOMED Code(s): 462822962 Code(s): R41.82 - ALTERED MENTAL STATUS, UNSPECIFIED Status: Resolved Priority: High Current Visit: Yes Qualifiers: Altered mental status type: unspecified Qualified Code(s): R41.82 - Altered mental status, unspecified (2) COPD exacerbation SNOMED Code(s): 643675386 Code(s): J44.1 - CHRONIC OBSTRUCTIVE PULMONARY DISEASE W (ACUTE) EXACERBATION Status: Acute Priority: High Current Visit: Yes (3) Hypercapnia SNOMED Code(s): 49386260 Code(s): R06.89 - OTHER ABNORMALITIES OF BREATHING Status: Acute Priority : High Current Visit: Yes (4) Hypoxia SNOMED Code(s): 683542099 Code(s): R09.02 - HYPOXEMIA Status: Acute Priority: High Current Visit : Yes - Problem List Review Problem List Initiated/Reviewed/Updated: Yes - Plan Plan:: I/P: Acute: COPD exacerbation with hypoxia -Hx/o severe COPD; Was intubated last ED visit -Chronically on 4L O2 -Reportedly refused to be placed on lung transplant list -Reported worsening dyspnea in ED -ABG in ED: pH of 7.28. PCO2 93.6. PO2 58.0. HCO3 42.7. O2 saturation 89 %. This is well on 2 L via nasal cannula. -ABG on Floor: pH 7.30, PCO2 92.1, PO2 100, HCO3 43.6, O2 saturation 96.1 while on BiPAP -ABG 01/12/19: pH 7.43, PCO2 61.3, PO2 79.0, HCO3 39.8, O2 saturation 95.2 while on BiPAP -60mg solumedrol given in ED -> continue 80mg Q6Hr -> taper -Duonebs/albuterol nebs scheduled and PRN -Azithromycin x 4 doses -TID robitussin DM scheduled -Glycopyrrolate 15.6 mcg IH BID -Terbutaline 2.5mg PO BID x4 doses -CXR: Emphysematous change with nothing acute -VRP Negative -Mycoplasma negative. -Strep pneumo negative -O2 as needed -Sputum culture ordered -Start BiPAP as needed -Pro-BNP 96 -Consult RT -Start IS when off BiPAP -WBC 12.25-->11.05; CRP >0.2 -Probiotic Resolved: S/P AMS -Family reports more confused than normal -Patient unaware how confused he is -Likely 2/2 above -Head CT negative Chronic: Impaired vision HLD HTN COPD Continuous O2 use at 4L GERD Plan: Admit to ICU-> downgrade to floor status Other orders as above Home medications as indicated PT/OT -> refusing rehab stay Obtain old records including PFT CM/SW for discharge planning Routine AM labs DVT Prophylaxis: SCDs GI prophylaxis: Home PPI Spiritual care consult Code status: Full code; PCP: Debi Braxton PA-C
[2019-01-12] MEDS: Metoprolol Succinate 50 MG Tab.ER PO SCH (08:10)
[2019-01-12] MEDS: Azithromycin 250 MG Tab PO SCH (08:11)
[2019-01-12] MEDS: Saccharomyces Boulardii (Probiotic) 250 MG Cap PO SCH (08:12)
[2019-01-12] MEDS: UBIDECARENONE 100 MG PO SCH (08:12)
[2019-01-12] MEDS: Acetaminophen 325 MG Tab PO PRN ×2 (17:35→21:10)
[2019-01-12] MEDS: Simvastatin 10 MG Tab PO SCH (20:39)
[2019-01-13] MEDS: methylPREDNISolone Sodium Succinate 40 MG/1 ML SDV IVPUSH SCH ×3 (00:02→15:20)
[2019-01-13] MEDS: Pantoprazole 40 MG Tab.CR PO SCH (06:08)
[2019-01-13] MEDS: guaiFENesin/Dextromethorphan 100-10 MG/5 ML Soln 5 ML Cup PO SCH ×2 (06:08→13:26)
[2019-01-13] MEDS: Insulin Lispro 100 Units/ML 3 ML Vial SUBCUT SCH ×2 (06:27→12:32)
[2019-01-13] MEDS: Albuterol/Ipratropium 3.0-0.5 MG/3 ML Neb Soln NEB SCH (06:33)
[2019-01-13] MEDS: Glycopyrrolate 15.6 MCG Cap.W.Dev Kit of 6 IH SCH (06:33)
[2019-01-13] MEDS: Metoprolol Succinate 50 MG Tab.ER PO SCH (08:35)
[2019-01-13] MEDS: Saccharomyces Boulardii (Probiotic) 250 MG Cap PO SCH (08:35)
[2019-01-13] MEDS: Azithromycin 250 MG Tab PO SCH (08:35)
[2019-01-13] MEDS: UBIDECARENONE 100 MG PO SCH (08:36)
[2019-01-13] MEDS: Acetaminophen 325 MG Tab PO PRN ×2 (08:41→12:38)
--- NOTE | 2019-01-13 10:30 | PCM.DCSUM1 ---
Discharge Summary - Hospital Course Free Text/Narrative:: Isiah Dowling is a 68 yo male who presents via ambulance to our ED the evening of 01/10/19 with a complaint of shortness of breath and confusion. 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 He reportedly took his saturations earlier and was found to be 84% on O2. On presentation he was 100% on 4 L via cannula and this was turned down to 2 L which resulted 93% saturations. On his last ED visit he was transported via air ambulance to [place] after being intubated. Has refused to be on a lung transplant list. He is quite confused in the ED and son reports this is worse than normal. He is unaware of how confused he is. In the ED temperature is 97.6 Fahrenheit. Pulse 86. Respirations 20. Blood pressure 154/119. Pulse ox 96%. Labs are obtained: WBC is elevated at 12.25. Hemoglobin 15.3. Hematocrit 53.2. He is macrocytic. Platelet are low at 154, 000. Neutrophils are elevated at 80%. There is no bandemia. ABGs obtained in the right radial showing a pH of 7.28. PCO2 is very high at 93.6. PO2 is 58.0. HCO3 is 42.7. O2 saturation is 89%. This is well on 2 L via nasal cannula. Sodium is 141. Potassium 5.7. Chloride 99. Code accident 45. Anion gap is 2.7. BUN is 20. Creatinine 1.1. EGFR greater than 60. Glucose 107. Calcium 9.6. Bilirubin 0.5. AST is 14, ALT 35, alkaline phosphatase 50. Protein 7.3. Albumin 3.7. Given albuterol nebulizer as well as 60 mg IV push of Solu-Medrol. Mycoplasma was obtained and is negative. Chest x-rays obtained and interpreted by Dr. Aparicio as "1. Emphysematous change. 2. Other chronic appearing changes as noted above." Head CT is obtained showing nothing acute. He carries a history of impaired vision, HLD, HTN, COPD, continues O2 use, GERD. He is a former smoker. His PCP is Neville Braxton PA-C. Diagnosis: Stroke: No Modified Lexis Scale: No Symptoms at All Modified Melber Scale Score: 0 - Discharge Data Discharge Date: 01/13/19 Discharge Disposition: Home, Self-Care 01 Condition: Good - Discharge Diagnosis/Problem(s) (1) Respiratory failure with hypoxia and hypercapnia SNOMED Code(s): 92524535 ICD Code: J96.91 - RESPIRATORY FAILURE, UNSPECIFIED WITH HYPOXIA; J96.92 - RESPIRATORY FAILURE, UNSPECIFIED WITH HYPERCAPNIA Status: Acute Qualifiers: Chronicity: acute on chronic Qualified Code(s): J96.21 - Acute and chronic respiratory failure with hypoxia; J96.22 - Acute and chronic respiratory failure with hypercapnia (2) COPD exacerbation SNOMED Code(s): 816593351 ICD Code: J44.1 - CHRONIC OBSTRUCTIVE PULMONARY DISEASE W (ACUTE) EXACERBATION Status: Resolved Priority: High (3) Altered mental status SNOMED Code(s): 962818495 ICD Code: R41.82 - ALTERED MENTAL STATUS, UNSPECIFIED Status: Resolved Priority: High Qualifiers: Altered mental status type: transient alteration of awareness Qualified Code(s): R40.4 - Transient alteration of awareness (4) COPD (chronic obstructive pulmonary disease) SNOMED Code(s): 45136439 ICD Code: J44.9 - CHRONIC OBSTRUCTIVE PULMONARY DISEASE, UNSPECIFIED Status : Chronic Qualifiers: COPD type: chronic bronchitis Chronic bronchitis type: unspecified Qualified Code(s): J42 - Unspecified chronic bronchitis (5) Generalized weakness SNOMED Code(s): 72937449 ICD Code: R53.1 - WEAKNESS Status: Acute - Patient Summary/Data Operative Procedure(s) Performed: None Complications: None Consults: Consultations 01/10/19 23:24 Consult to Case Management/Multi [place] Assessor [CONS] Routine Consult to Spiritual Care [CONS] Routine OT Evaluation and Treatment [CONS] Routine PT Evaluation and Treatment [CONS] Routine Respiratory Care Assess and Treatment [CONS] Routine Labs Pending at D/C: None Recommended Follow-up Testing/Procedures: Pulmonology after discharge Planned Operative Procedure(s) after DC: None Hospital Course: Patient was primarily admitted for acute COPD exacerbation which eventually lead to acute on combined respiratory failure. - Patient Instructions Diet: Heart Healthy Diet, Usual Diet as Tolerated, Weight Loss Diet Activity: As Tolerated Driving: Do Not Drive Showering/Bathing: May Shower Notify Provider of: Fever, Increased Pain, Nausea and/or Vomiting Other/Special Instructions: - Please take all new medications as directed. - Continue routine home activities as tolerated. - Continue to use IS (incentive spirometry) and flutter Valve as directed for 1-2 week. - Continue supplemental O2 as needed for hypoxia for 1-2 week. - Make sure you rinse each time you use the inhalers. - Make sure you use your home BIPAP/CPAP as directed. - Recommend Pulmonary Function Test after discharge. - Call your family doctor for any questions or concerns after discharge. - Follow up with PCP in 1 week. - Come back or seek immediate care should your symptoms persist or get worse - Discharge Plan *PRESCRIPTION DRUG MONITORING PROGRAM REVIEWED*: Not Applicable *COPY OF PRESCRIPTION DRUG MONITORING REPORT IN PATIENT TARAN: Not Applicable Prescriptions/Med Rec: Albuterol Sulfate [Albuterol Sulfate Hfa] 2 puff INH Q4H PRN #1 hfa.[email or web address] PRN Reason: SOB/Wheezing Albuterol/Ipratropium [DuoNeb 3.0-0.5 MG/3 ML] 3 ml NEB QID #1 neb Fluticasone/Umeclidin/Vilanter [Trelegy Ellipta 100-62.5-25 MCG] 1 puff INH ONETIME #1 inhaler Home Medications: Home Meds Metoprolol Succinate 50 mg PO DAILY 05/23/18 [History] Pantoprazole [ProTONIX] 40 mg PO DAILY 05/23/18 [History] atorvaSTATin [Lipitor] 10 mg PO BEDTIME 05/23/18 [History] predniSONE [Prednisone] 20 mg PO DAILY 05/23/18 [History] Acetaminophen [Tylenol Extra Strength] 1,000 mg PO DAILY PRN 01/10/19 [History] Alendronate Sodium [Alendronate] 5 mg PO ACBREAKFAST 01/10/19 [History] Ubidecarenone [Coq-10] 100 mg PO DAILY 01/10/19 [History] Albuterol Sulfate [Albuterol Sulfate Hfa] 2 puff INH Q4H PRN #1 hfa.aer.ad 01/13 [Rx] Albuterol/Ipratropium [DuoNeb 3.0-0.5 MG/3 ML] 3 ml NEB QID #1 neb 01/13/19 [Rx] Fluticasone/Umeclidin/Vilanter [Trelegy Ellipta 100-62.5-25 MCG] 1 puff INH ONETIME #1 inhaler 01/13/19 [Rx] Patient Handouts: Chronic Obstructive Pulmonary Disease Exacerbation, Easy-to- Read, Cool Mist Vaporizer, Acute Respiratory Failure, Adult, Pursed Lip Breathing Referrals: Girma Melvin [Other] - 02/26/19 12:00 pm (Pulmonology. Pulmonary function test at 12:00 noon with appointment to follow at 1:00 p.m. Central Standard Time.) Debi Braxton PA [Primary Care Provider] - - Discharge Summary/Plan Comment DC Time >30 min.: Yes (45 mins) Discharge Summary/Plan Comment: Discharge to Home - General Info Date of Service: 01/13/19 Admission Dx/Problem (Free Text: Admission Diagnosis/Problem Admission Diagnosis/Problem COPD, Moderate chronic obstructive pulmonary disease Subjective Update: In to see Isiah. Therapies report he has not yet done steps and had some difficulty with ambulation today 2/2 weakness. We discussed this with the patient and relayed that he may benefit from a rehab stay. He is adamant against this and states he will gladly do outpatient or home health rehab but does not want placement. We discussed concerns over falls and his ability to care for himself at home and he is un-amenable to this. He otherwise continues to improve. ABG this AM showed much improvement with a CO2 of 61. He reports he has a CPAP at home but states he only wears it for 15 minutes a day to open his lungs. He reports this was how he was told to wear it from [facility]. We explained to him how he will likely need to wear it at night from here on out. He has been downgraded to MSP status. He requests he remain in the hospital until Tuesday and we discussed how he may be ready prior to then for discharge. Functional Status: Reports: Pain Controlled, Tolerating Diet, Ambulating, Urinating. Denies: New Symptoms - Review of Systems General: Denies: Fever, Weakness, Fatigue, Malaise, Chills Pulmonary: Reports: Shortness of Breath. Denies: Cough, Sputum, Other Cardiovascular: Denies: Chest Pain, Palpitations, Dyspnea on Exertion, Edema, Lightheadedness Gastrointestinal: Denies: Abdominal Pain, Nausea, Vomiting Genitourinary: Reports: No Symptoms Musculoskeletal: Reports: No Symptoms Skin: Denies: Cyanosis, Jaundice, Mottled, Pallor, Diaphoresis, Bruising, Rash Neurological: Reports: Gait Disturbance. Denies: Confusion, Dizziness, Headache , Difficulty Walking, Weakness Psychiatric: Denies: Depression, Anxiety, Agitation, Hallucinations Systems Review Comment: No overnight or acute issues. He rested well. He seems to be back at his baseline. - Patient Data Vitals - Most Recent: Last Vital Signs Temp 37.1 C 01/13/19 08:14 Pulse 93 01/13/19 08:35 Resp 20 01/13/19 08:14 BP 133/80 01/13/19 08:35 Pulse Ox 95 01/13/19 08:14 Weight - Most Recent: 101.968 kg I&O - Last 24 hours: Intake & Output 01/12/19 01/13/19 01/13/19 22:59 06:59 14:59 Intake Total 480 600 300 Output Total 100 525 Balance 380 75 300 Lab Results - Last 24 hrs: Laboratory Results - last 24 hr 01/12/19 01/12/19 01/12/19 Range/Units 11:34 17:22 20:33 Puncture Site ABG pH (7.35-7.45) ABG pCO2 (35.0-45.0) mmHg ABG pO2 (80.0-100.0) mmHg ABG HCO3 (22.0-26.0) meq/L ABG O2 Saturation (96.0-97.0) % ABG Base Excess (-2-2.0) Gianni Test A-a Gradient mmHg O2 Delivery Device FiO2 (21.00-100.00) % PEEP cmH20 Pressure Support cmH2O Sodium (136-145) mEq/L Potassium (3.5-5.1) mEq/L Chloride (98-107) mEq/L Carbon Dioxide (21-32) mEq/L Anion Gap (5-15) BUN (7-18) mg/dL Creatinine (0.7-1.3) mg/dL Est Cr Clr Drug Dosing mL/min Estimated GFR (MDRD) (>60) mL/min BUN/Creatinine Ratio (14-18) Glucose (80-115) mg/dL POC Glucose 139 H 200 H 163 H (80-115) mg/dL Calcium (8.5-10.1) mg/dL Magnesium (1.8-2.4) mg/dl C-Reactive Protein (<1.0) mg/dL 01/13/19 01/13/19 01/13/19 Range/Units 05:45 06:15 06:25 Puncture Site Rt radial ABG pH 7.41 (7.35-7.45) ABG pCO2 65.8 H (35.0-45.0) mmHg ABG pO2 91.0 (80.0-100.0) mmHg ABG HCO3 40.4 H (22.0-26.0) meq/L ABG O2 Saturation 96.2 (96.0-97.0) % ABG Base Excess 13.3 H (-2-2.0) Gianni Test Positive A-a Gradient 19 mmHg O2 Delivery Device Bipap FiO2 30.00 (21.00-100.00) % PEEP 7.0 cmH20 Pressure Support 14.0 cmH2O Sodium 140 (136-145) mEq/L Potassium 4.5 (3.5-5.1) mEq/L Chloride 100 (98-107) mEq/L Carbon Dioxide 39 H (21-32) mEq/L Anion Gap 5.5 (5-15) BUN 33 H (7-18) mg/dL Creatinine 1.1 (0.7-1.3) mg/dL Est Cr Clr Drug Dosing 67.29 mL/min Estimated GFR (MDRD) > 60 (>60) mL/min BUN/Creatinine Ratio 30.0 H (14-18) Glucose 117 H (80-115) mg/dL POC Glucose 106 (80-115) mg/dL Calcium 9.3 (8.5-10.1) mg/dL Magnesium 2.4 (1.8-2.4) mg/dl C-Reactive Protein < 0.2 (<1.0) mg/dL STEPHANIE Results - Last 24 hrs: Microbiology 01/11/19 07:00 Streptococcus pneumoniae Antigen (M - Final Urine Med Orders - Current: Current Medications Acetaminophen (Tylenol) 650 mg PO Q4H PRN PRN Reason: Pain (Mild 1-3)/fever Last Admin: 01/13/19 08:41 Dose: 650 mg Hydrocodone Bitart/Acetaminophen ([place] 325-5 Mg) 1 tab PO Q4H PRN PRN Reason: Pain (moderate 4-6) Albuterol/Ipratropium (Duoneb 3.0-0.5 Mg/3 Ml) 3 ml NEB Q4H PRN PRN Reason: Shortness Of Breath/wheezing Last Admin: 01/11/19 14:51 Dose: 3 ml Albuterol/Ipratropium (Duoneb 3.0-0.5 Mg/3 Ml) 3 ml NEB BIDRT [facility] Last Admin: 01/13/19 06:33 Dose: 3 ml Azithromycin (Zithromax) 250 mg PO DAILY [facility] Stop: 01/14/19 09:01 Last Admin: 01/13/19 08:35 Dose: 250 mg Bisacodyl (Dulcolax) 5 mg PO DAILY PRN PRN Reason: Constipation Dextrose/Water (Dextrose 50% In Water) 50 ml IVPUSH ASDIRECTED PRN PRN Reason: Hypoglycemia Diltiazem HCl (Cardizem) 10 mg IVPUSH Q4H PRN PRN Reason: Tachycardia Docusate Sodium (Colace) 100 mg PO BID PRN PRN Reason: Constipation Glycopyrrolate (Seebri Neohaler) 15.6 mcg IH BIDRT [facility] Last Admin: 01/13/19 06:33 Dose: 1 cap Guaifenesin/Phenylephrine HCl (Robitussin Dm) 10 ml PO TID@0700,1400,2100 [facility] Last Admin: 01/13/19 06:08 Dose: 10 ml Hydralazine HCl (Apresoline) 20 mg IVPUSH Q4H PRN PRN Reason: Hypertension Insulin Human Lispro (Humalog) 0 unit SUBCUT QIDACANDBED [facility]; Protocol Last Admin: 01/13/19 06:27 Dose: Not Given Lorazepam (Ativan) 2 mg IVPUSH Q4H PRN PRN Reason: Seizures Lorazepam (Ativan) 1 mg IV Q6H PRN PRN Reason: Anxiety Magnesium Sulfate (Pharmacy To Dose - Magnesium Replacement) 1 dose .XX ASDIRECTED PRN PRN Reason: RX TO WATCH MAG LEVELS Methylprednisolone Sodium Succinate (Solu-Medrol) 60 mg IVPUSH Q8H [facility] Last Admin: 01/13/19 06:07 Dose: 60 mg Metoprolol Succinate (Toprol Xl) 50 mg PO DAILY [facility] Last Admin: 01/13/19 08:35 Dose: 50 mg Morphine Sulfate (Morphine) 2 mg IVPUSH Q2H PRN PRN Reason: Dyspnea Stop: 01/15/19 23:23 Last Admin: 01/11/19 21:37 Dose: 2 mg Ondansetron HCl (Zofran) 4 mg IV Q6H PRN PRN Reason: Nausea/Vomiting Pantoprazole Sodium (Protonix) 40 mg PO DAILY@0700 [facility] Last Admin: 01/13/19 06:08 Dose: 40 mg Ubidecarenone 100 Mg (Ptom) 0 each PO DAILY [facility] Last Admin: 01/13/19 08:36 Dose: 1 each Polyethylene Glycol (Miralax) 17 gm PO DAILY PRN PRN Reason: Constipation Potassium Chloride (Pharmacy To Dose - Potassium Replacement) 1 dose .XX ASDIRECTED PRN PRN Reason: RX TO WATCH K LEVELS Saccharomyces Boulardii (Florastor) 250 mg PO DAILY [facility] Last Admin: 01/13/19 08:35 Dose: 250 mg Senna/Docusate Sodium (Senna Plus) 1 tab PO BID PRN PRN Reason: Constipation Simvastatin (Zocor) 10 mg PO BEDTIME [facility] Last Admin: 01/12/19 20:39 Dose: 10 mg Temazepam (Restoril) 7.5 mg PO BEDTIME PRN PRN Reason: Sleep Discontinued Medications Albuterol (Proventil Neb Soln) 2.5 mg NEB ONETIME ONE Stop: 01/10/19 20:03 Last Admin: 01/10/19 20:08 Dose: 2.5 mg Azithromycin 250 mg/ Sodium (Chloride) 250 mls @ 250 mls/hr IV ONETIME ONE Stop: 01/11/19 00:30 Last Admin: 01/11/19 00:29 Dose: 250 mls/hr Methylprednisolone Sodium Succinate (Solu-Medrol) 60 mg IVPUSH ONETIME ONE Stop: 01/10/19 22:34 Last Admin: 01/10/19 23:14 Dose: 60 mg Methylprednisolone Sodium Succinate (Solu-Medrol) 80 mg IVPUSH Q6H [facility] Last Admin: 01/11/19 21:38 Dose: 80 mg Metoprolol Tartrate (Lopressor) 5 mg IVPUSH Q4H PRN PRN Reason: Tachycardia Non-Formulary Medication (Ubidecarenone) 100 mg PO DAILY [facility] Non-Formulary Medication (Acetaminophen) 1,000 mg PO DAILY PRN PRN Reason: Pain Non-Formulary Medication (Alendronate Sodium [Alendronate]) 5 mg PO ACBREAKFAST [facility] Last Admin: 01/11/19 07:36 Dose: Not Given Pantoprazole Sodium (Protonix Iv) 40 mg IVPUSH ONETIME ONE Stop: 01/10/19 23:25 Last Admin: 01/11/19 00:29 Dose: 40 mg Terbutaline Sulfate (Brethine) 2.5 mg PO BID [facility] Stop: 01/12/19 21:01 Last Admin: 01/12/19 20:36 Dose: 2.5 mg - Exam Quality Assessment: Reports: Supplemental Oxygen General: Reports: Alert, Oriented, Cooperative, No Acute Distress, Other (Obese) HEENT: Reports: Pupils Equal, Pupils Reactive, EOMI Neck: Reports: Supple Lungs: Reports: Normal Respiratory Effort, Wheezing (mild expiratory wheezing) Cardiovascular: Reports: Regular Rate, Regular Rhythm GI/Abdominal Exam: Normal Bowel Sounds, Soft, Non-Tender, No Organomegaly, No Distention, No Abnormal Bruit, Other (Obese) (Male) Exam: Deferred Rectal (Males) Exam: Deferred Back Exam: Reports: Normal Inspection, Decreased Range of Motion Extremities: Normal Inspection, Normal Range of Motion, Non-Tender, No Pedal Edema, Normal Capillary Refill Skin: Reports: Warm, Dry, Intact Neurological: Reports: No New Focal Deficit Psy/Mental Status: Reports: Alert, Normal Affect, Normal Mood
== END 2019-01-13 15:12 | disposition home or self-care (01) | DRG 190 ==
LOC: JD.ED 19:12 → SUPCPDRO 19:12 → JD.ICU 22:38 → JD.MS 01-12 12:46
PROVIDERS: ADMIT Internal Medicine; ATTEND Internal Medicine
DX: J44.1 Chronic obstructive pulmonary disease with (acute) exacerbation (principal); J96.21 Acute and chronic respiratory failure with hypoxia; R09.02 Hypoxemia; R41.82 Altered mental status, unspecified; J96.22 Acute and chronic respiratory failure with hypercapnia; E87.2 Acidosis; E78.00 Pure hypercholesterolemia, unspecified; I10 Essential (primary) hypertension; K21.9 Gastro-esophageal reflux disease without esophagitis; E78.5 Hyperlipidemia, unspecified; H54.7 Unspecified visual loss; Z99.81 Dependence on supplemental oxygen; R41.0 Disorientation, unspecified; R06.02 Shortness of breath; R06.89 Other abnormalities of breathing; Z87.891 Personal history of nicotine dependence; Z79.52 Long term (current) use of systemic steroids; Z79.899 Other long term (current) drug therapy
CPT/HCPCS: 36415; 36600; 70450; 70450-26; 71046; 71046-26; 80048; 80053; 82803; 82962; 83735; 83880; 85007; 85025; 85027; 86140; 86738; 87486; 87581; 87632; 87798; 87899; 94640; 94660; 94760; 97110-GO; 97116-GP; 97161-GP; 97167-GO; 97530-GO; 97535-GO; 99285; 99285-25; A9270-GY; C9113; J0456; J1815-GY; J2270; J2920; J7050; J7620-GY

== ENCOUNTER 2020-02-12 16:20 | Emergency (ER) | payer MEDICARE ==
[2020-02-12] MEDS ORDERED: Sodium Chloride 0.9% 10 ML Syringe FLUSH PRN (16:47)
--- NOTE | 2020-02-12 16:59 | EDM.PDOC ---
ED HPI GENERAL MEDICAL PROBLEM - General Chief Complaint: General Stated Complaint: NO MOVEMENT IN RIGHT HAND Time Seen by Provider: 02/12/20 16:33 Source of Information: Reports: Patient History Limitations: Reports: No Limitations - History of Present Illness INITIAL COMMENTS - FREE TEXT/NARRATIVE: The patient presents with weakness to his right hand. He said yesterday at 3pm he could not move his right arm. Last time known well was 3pm yesterday. He said it took about 1/2 hour then he could slowly move his right arm. Now he is having a hard time with fine motor function with the right hand. He has never had this happen before. He does not think he was weak in his right leg. He was sitting when this happened. He has a history of COPD and he is on home oxygen. He has no fever, chills, cough, headache, chest pain, abdominal pain, nausea or vomiting. He does have shortness of breath but that is normal for him. Onset: Sudden Duration: Day(s): (Yesterday) Severity: Severe Improves with: Reports: None Worsens with: Reports: None Associated Symptoms: Reports: Shortness of Breath. Denies: Chest Pain, Cough, Fever/Chills, Headaches, Nausea/Vomiting - Related Data Allergies Allergy/AdvReac Type Severity Reaction Status Date / Time No Known Allergies Allergy Verified 02/12/20 16:38 Home Meds: Home Meds Metoprolol Succinate 50 mg PO DAILY 05/23/18 [History] Pantoprazole [ProTONIX] 40 mg PO DAILY 05/23/18 [History] atorvaSTATin [Lipitor] 10 mg PO BEDTIME 05/23/18 [History] predniSONE [Prednisone] 20 mg PO DAILY 05/23/18 [History] Acetaminophen [Tylenol Extra Strength] 1,000 mg PO DAILY PRN 01/10/19 [History] Alendronate Sodium [Alendronate] 5 mg PO ACBREAKFAST 01/10/19 [History] Ubidecarenone [Coq-10] 100 mg PO DAILY 01/10/19 [History] Albuterol Sulfate [Albuterol Sulfate Hfa] 2 puff INH Q4H PRN #1 hfa.aer.ad 01/13 [Rx] Albuterol/Ipratropium [DuoNeb 3.0-0.5 MG/3 ML] 3 ml NEB QID #1 neb 01/13/19 [Rx] Fluticasone/Umeclidin/Vilanter [Trelegy Ellipta 100-62.5-25 MCG] 1 puff INH ONETIME #1 inhaler 01/13/19 [Rx] Past Medical History HEENT History: Reports: Impaired Vision Cardiovascular History: Reports: High Cholesterol, Hypertension Respiratory History: Reports: COPD Other Respiratory History: lung disease, wears continuous oxygen Gastrointestinal History: Reports: GERD Musculoskeletal History: Reports: None Neurological History: Reports: None - Past Surgical History GI Surgical History: Reports: Hernia Repair/Other Social & Family History - Family History Family Medical History: Noncontributory - Caffeine Use Caffeine Use: Reports: Coffee, Tea - Living Situation & Occupation Living situation: Reports: , with Spouse, with Family (2 sons) Occupation: Retired ED ROS GENERAL - Review of Systems Review Of Systems: See Below Constitutional: Reports: No Symptoms HEENT: Reports: No Symptoms Respiratory: Reports: Shortness of Breath Cardiovascular: Reports: No Symptoms Endocrine: Reports: No Symptoms GI/Abdominal: Reports: No Symptoms : Reports: No Symptoms Musculoskeletal: Reports: Other (Right arm weakness) Skin: Reports: No Symptoms Neurological: Reports: Weakness (right arm) ED EXAM, GENERAL - Physical Exam Exam: See Below Exam Limited By: No Limitations General Appearance: Alert, No Apparent Distress Ears: Normal External Exam Nose: Normal Inspection Head: Atraumatic, Normocephalic Neck: Normal Inspection Respiratory/Chest: No Respiratory Distress, Decreased Breath Sounds Cardiovascular: Regular Rate, Rhythm, No Edema, No Murmur GI/Abdominal: Soft, Non-Tender, No Organomegaly, No Mass Extremities: Normal Inspection Neurological: Alert, Oriented, Other (Mild weakness to the right arm and hand with abnormal finger to nose. No weakness to the right leg.) EKG INTERPRETATION EKG Date: 02/12/20 Time: 16:59 Rhythm: NSR Rate (Beats/Min): 90 [place]: Normal P-Wave: Present QRS: Normal ST-T: Normal QT: Normal Course - Vital Signs Last Recorded V/S: Last Vital Signs Temp 97.4 F 02/12/20 16:33 Pulse 100 02/12/20 16:33 Resp 22 H 02/12/20 16:33 BP 155/88 H 02/12/20 16:33 Pulse Ox 98 02/12/20 16:33 - Orders/Labs/Meds Orders: Active Orders 24 hr Category Date Time Status Cardiac Monitoring [RC] . DIRECTED Care 02/12/20 16:47 Active EKG Documentation Completion [RC] STAT Care 02/12/20 16:48 Active Oxygen Therapy [RC] PRN Care 02/12/20 16:47 Active Peripheral IV Care [RC] . DIRECTED Care 02/12/20 16:48 Active Sodium Chloride 0.9% [Saline Flush] Med 02/12/20 16:47 Active 10 ml FLUSH ASDIRECTED PRN Peripheral IV Insertion Adult [OM.PC] Stat Oth 02/12/20 16:47 Ordered Medication Orders Sodium Chloride (Saline Flush) 10 ml FLUSH ASDIRECTED PRN PRN Reason: Keep Vein Open Last Admin: 02/12/20 16:40 Dose: 10 ml Labs: Laboratory Tests 02/12/20 02/12/20 02/12/20 Range/Units 17:05 17:05 17:05 WBC 12.93 H (4.23-9.07) K/mm3 RBC 5.12 (4.63-6.08) M/mm3 Hgb 14.3 (13.7-17.5) gm/dl Hct 49.2 (40.1-51.0) % MCV 96.1 H D (79.0-92.2) fl MCH 27.9 (25.7-32.2) pg MCHC 29.1 L (32.2-35.5) g/dl RDW Std Deviation 54.1 H (35.1-43.9) fL Plt Count 167 (163-337) K/mm3 MPV 11.1 (9.4-12.3) fl Neut % (Auto) 89.1 H (34.0-67.9) % Lymph % (Auto) 4.5 L (21.8-53.1) % [place] % (Auto) 4.7 L (5.3-12.2) % Eos % (Auto) 0 L (0.8-7.0) Baso % (Auto) 0.2 (0.1-1.2) % Neut # (Auto) 11.52 H (1.78-5.38) K/mm3 Lymph # (Auto) 0.58 L (1.32-3.57) K/mm3 [place] # (Auto) 0.61 (0.30-0.82) K/mm3 Eos # (Auto) 0.00 L (0.04-0.54) K/mm3 Baso # (Auto) 0.03 (0.01-0.08) K/mm3 Manual Slide Review Abnormal smear PT 10.3 (9.7-12.0) SECONDS INR 0.94 APTT 22 (22-31) SECONDS Sodium 146 H (136-145) mEq/L Potassium 5.1 (3.5-5.1) mEq/L Chloride 103 (98-107) mEq/L Carbon Dioxide 40 H (21-32) mEq/L Anion Gap 8.1 (5-15) BUN 18 (7-18) mg/dL Creatinine 1.0 (0.7-1.3) mg/dL Est Cr Clr Drug Dosing 73.00 mL/min Estimated GFR (MDRD) > 60 (>60) mL/min BUN/Creatinine Ratio 18.0 (14-18) Glucose 157 H (80-115) mg/dL Calcium 9.6 (8.5-10.1) mg/dL Total Bilirubin 0.4 (0.2-1.0) mg/dL AST 9 L (15-37) U/L ALT 43 (16-63) U/L Alkaline Phosphatase 51 (46-116) U/L Troponin I < 0.017 (0.00-0.056) ng/mL Total Protein 6.4 (6.4-8.2) g/dl Albumin 3.3 L (3.4-5.0) g/dl Globulin 3.1 gm/dL Albumin/Globulin Ratio 1.1 (1-2) Meds: Medications Generic Name Dose Route Start Last Admin Trade Name Freq PRN Reason Stop Dose Admin Sodium Chloride 10 ml 02/12/20 16:47 02/12/20 16:40 Saline Flush FLUSH 10 ml ASDIRECTED PRN Administration Keep Vein Open - Re-Assessments/Exams Free Text/Narrative Re-Assessment/Exam: 02/12/20 17:01 I ordered an IV saline lock, labs, EKG and a CT of his head. 02/12/20 17:54 His EKG shows a NSR with no acute changes. His WBC was elevated at 12.93. His PT, INR and PTT look good. His Na was 146. His CO2 is elevated at 40. His glucose is elevated at 157. His troponin is negative. 02/12/20 18:[address] of his head shows no sign of bleed. The patient does not want to be admitted or sent to [facility]. I was busy calling [facility] for another stroke. The patient wants to leave now. I will get him on aspirin and have him follow up with Leona Burt for further work up. Departure - Departure Time of Disposition: 18:30 Disposition: Home, Self-Care 01 Condition: Good Clinical Impression: CVA (cerebral vascular accident) Qualifiers: CVA mechanism: unspecified Qualified Code(s): I63.9 - Cerebral infarction, unspecified - Discharge Information *PRESCRIPTION DRUG MONITORING PROGRAM REVIEWED*: Not Applicable *COPY OF PRESCRIPTION DRUG MONITORING REPORT IN PATIENT TARAN: Not Applicable Referrals: Leona Burt PA-C [Primary Care Provider] - 2 Days Forms: ED Department Discharge Additional Instructions: Take an 81mg aspirin daily. Follow up with Leona Burt within a couple days. You will need further work up. Please return if you are worse. Sepsis Event Note - Evaluation Sepsis Screening Result: No Definite Risk - Focused Exam Vital Signs: Vital Signs Temp Pulse Resp BP Pulse Ox 02/12/20 16:33 97.4 F 100 22 H 155/88 H 98 Date Exam was Performed: 02/12/20 Time Exam was Performed: 18:29 - My Orders Last 24 Hours: My Active Orders 02/12/20 16:47 Cardiac Monitoring [RC] . DIRECTED Oxygen Therapy [RC] PRN Sodium Chloride 0.9% [Saline Flush] 10 ml FLUSH ASDIRECTED PRN Peripheral IV Insertion Adult [OM.PC] Stat 02/12/20 16:48 EKG Documentation Completion [RC] STAT Peripheral IV Care [RC] . DIRECTED - Assessment/Plan Last 24 Hours: My Active Orders 02/12/20 16:47 Cardiac Monitoring [RC] . DIRECTED Oxygen Therapy [RC] PRN Sodium Chloride 0.9% [Saline Flush] 10 ml FLUSH ASDIRECTED PRN Peripheral IV Insertion Adult [OM.PC] Stat 02/12/20 16:48 EKG Documentation Completion [RC] STAT Peripheral IV Care [RC] . DIRECTED
--- NOTE | 2020-02-12 18:01 | CT ---
Head CT Technique: Multiple axial sections through the brain were obtained. Intravenous contrast was not utilized. Comparison: Prior head CT study of 01/10/19. Findings: Ventricles along with basal cisterns and sulci over the convexities appear mildly prominent. No abnormal parenchymal densities are seen. No evidence of intracranial hemorrhage. No midline shift or mass-effect is appreciated. Bone window settings were reviewed which shows no acute calvarial finding. Soft tissue finding is noted within the left maxillary sinus most likely representing a retention cyst measuring 1.7 cm. Mild mucosal thickening is seen within the left mastoid sinus which is more prominent than on prior study and difficult to exclude early mastoiditis. Impression: 1. Increasing mucosal thickening within the left mastoid sinus. Difficult to exclude mastoiditis. Please correlate if patient has any corresponding symptoms. 2. Retention cyst within the left maxillary sinus. 3. Mild generalized atrophy. 4. No acute intracranial abnormality is appreciated. Diagnostic code #3 This report was dictated in MDT
== END 2020-02-12 18:53 | disposition home or self-care (01) ==
LOC: JD.ED 16:20
DX: I63.9 Cerebral infarction, unspecified (principal); I10 Essential (primary) hypertension; J44.9 Chronic obstructive pulmonary disease, unspecified; E78.00 Pure hypercholesterolemia, unspecified; K21.9 Gastro-esophageal reflux disease without esophagitis; Z79.899 Other long term (current) drug therapy
CPT/HCPCS: 36415; 70450; 70450-26; 80053; 82962; 84484; 85025; 85610; 85730; 93005; 93010; 99285; 99285-25

== ENCOUNTER 2021-11-01 20:51 | Inpatient (IN) | payer MEDICARE ==
[2021-11-01] MEDS: Sodium Chloride 0.9% 10 ML Syringe FLUSH PRN ×2 (21:30→23:10)
[2021-11-01 22:02] LABS: CORONAVIRUS COVID-19 NAA NEGATIVE (NEGATIVE)
[2021-11-01] MEDS ORDERED: cefTRIAXone 1 GM in Sodium Chloride 0.9% 100 ML IV STA (22:30)
[2021-11-01] MEDS ORDERED: cefTRIAXone 1 GM AdvVial IV ONE (22:33)
[2021-11-01] MEDS ORDERED: Sodium Chloride 0.9% 10 ML SDV FLUSH ONE (22:35)
[2021-11-01] MEDS ORDERED: Iopamidol 755 Mg/ML 100 ML Bottle IVPUSH ONE (22:35)
[2021-11-01] MEDS ORDERED: Sodium Chloride 0.9% 100 ML IV SCH (22:45)
[2021-11-01] MEDS: Sodium Chloride 0.9% 1,000 ML IV SCH (23:22)
[2021-11-02] MEDS ORDERED: Albuterol/Ipratropium 3.0-0.5 MG/3 ML Neb Soln NEB ONE (00:50)
[2021-11-02] MEDS ORDERED: methylPREDNISolone Sodium Succinate 125 MG/2 ML SDV IVPUSH ONE (00:51)
[2021-11-02] MEDS ORDERED: Albuterol 0.083% 2.5 MG/3 ML Neb Soln NEB PRN (09:42)
[2021-11-02] MEDS ORDERED: Ondansetron 4 MG/2 ML SDV IV PRN (09:42)
[2021-11-02] MEDS: Albuterol/Ipratropium 3.0-0.5 MG/3 ML Neb Soln NEB SCH ×3 (11:24→20:28)
[2021-11-02] MEDS ORDERED: Magnesium Sulfate/Water 2 GM in Premix Bag 1 BAG IV ONE (11:35)
[2021-11-02] MEDS: Doxycycline 100 MG in Sodium Chloride 0.9% 100 ML IV SCH ×2 (11:56→23:13)
[2021-11-02] MEDS ORDERED: FLU Vacc QS2021(65UP)/MF59C/PF 60 MCG/0.5 ML Syringe IM ONE (12:00)
[2021-11-02] MEDS: Enoxaparin 40 MG/0.4 ML Syringe SUBCUT SCH (12:01)
[2021-11-02] MEDS: Sodium Chloride 0.9% 1,000 ML IV SCH (13:17)
[2021-11-02 13:36] LABS: HEMOGLOBIN A1C 6.1 %
[2021-11-02] MEDS: methylPREDNISolone Sodium Succinate 125 MG/2 ML SDV IVPUSH SCH (14:10)
[2021-11-02] MEDS ORDERED: Lactated Ringers 1,000 ML IV SCH (14:15)
[2021-11-03] MEDS: methylPREDNISolone Sodium Succinate 125 MG/2 ML SDV IVPUSH SCH ×3 (05:18→17:39)
[2021-11-03] MEDS: Albuterol/Ipratropium 3.0-0.5 MG/3 ML Neb Soln NEB SCH ×4 (05:31→20:41)
[2021-11-03] MEDS ORDERED: Metoprolol Tartrate 50 MG Tab PO SCH (09:45)
[2021-11-03] MEDS: Enoxaparin 40 MG/0.4 ML Syringe SUBCUT SCH (11:59)
[2021-11-03] MEDS: Doxycycline 100 MG in Sodium Chloride 0.9% 100 ML IV SCH ×2 (12:00→22:50)
[2021-11-03] MEDS ORDERED: Acetaminophen 325 MG Tab PO PRN (21:23)
[2021-11-03] MEDS: Acetaminophen 325 MG Tab PO PRN (21:49)
[2021-11-04] MEDS: Sodium Chloride 0.9% 10 ML Syringe FLUSH PRN (00:06)
[2021-11-04] MEDS: methylPREDNISolone Sodium Succinate 125 MG/2 ML SDV IVPUSH SCH ×2 (05:26→18:14)
[2021-11-04] MEDS: Albuterol/Ipratropium 3.0-0.5 MG/3 ML Neb Soln NEB SCH ×4 (05:50→20:20)
[2021-11-04] MEDS: Doxycycline 100 MG in Sodium Chloride 0.9% 100 ML IV SCH ×2 (11:32→22:06)
[2021-11-04] MEDS: Enoxaparin 40 MG/0.4 ML Syringe SUBCUT SCH (11:36)
[2021-11-05] MEDS: methylPREDNISolone Sodium Succinate 125 MG/2 ML SDV IVPUSH SCH ×2 (04:13→16:28)
[2021-11-05] MEDS: Albuterol/Ipratropium 3.0-0.5 MG/3 ML Neb Soln NEB SCH ×4 (05:33→20:00)
[2021-11-05] MEDS ORDERED: Doxycycline 100 MG Vial ONE (11:01)
[2021-11-05] MEDS: Phosphorus #1 250 MG Tab PO SCH ×2 (11:06→20:32)
[2021-11-05] MEDS: Magnesium Oxide 400 MG Tab PO SCH (11:06)
[2021-11-05] MEDS: Doxycycline 100 MG in Sodium Chloride 0.9% 100 ML IV SCH ×2 (11:07→22:42)
[2021-11-05] MEDS: Enoxaparin 40 MG/0.4 ML Syringe SUBCUT SCH (11:07)
[2021-11-05] MEDS: Acetaminophen 325 MG Tab PO PRN (15:13)
[2021-11-05] MEDS: Melatonin 3 MG Tab PO PRN (21:31)
[2021-11-06] MEDS: methylPREDNISolone Sodium Succinate 125 MG/2 ML SDV IVPUSH SCH (04:57)
[2021-11-06] MEDS: Albuterol/Ipratropium 3.0-0.5 MG/3 ML Neb Soln NEB SCH ×5 (05:30→21:53)
[2021-11-06] MEDS: Acetaminophen 325 MG Tab PO PRN (09:10)
[2021-11-06] MEDS: Phosphorus #1 250 MG Tab PO SCH ×3 (09:12→20:28)
[2021-11-06] MEDS: predniSONE 20 MG Tab PO SCH (09:13)
[2021-11-06] MEDS: Magnesium Oxide 400 MG Tab PO SCH (09:13)
[2021-11-06] MEDS: Doxycycline 100 MG in Sodium Chloride 0.9% 100 ML IV SCH ×2 (11:48→23:32)
[2021-11-06] MEDS: Enoxaparin 40 MG/0.4 ML Syringe SUBCUT SCH (11:49)
[2021-11-06] MEDS: Melatonin 3 MG Tab PO PRN (20:54)
[2021-11-07] MEDS: Albuterol/Ipratropium 3.0-0.5 MG/3 ML Neb Soln NEB SCH ×4 (05:47→21:39)
[2021-11-07] MEDS: predniSONE 20 MG Tab PO SCH (07:58)
[2021-11-07] MEDS: Acetaminophen 325 MG Tab PO PRN (08:46)
[2021-11-07] MEDS: Magnesium Oxide 400 MG Tab PO SCH (08:47)
[2021-11-07] MEDS: Phosphorus #1 250 MG Tab PO SCH (08:47)
[2021-11-07] MEDS ORDERED: Sodium Chloride 0.45% 1,000 ML IV SCH (09:45)
[2021-11-07] MEDS: Doxycycline 100 MG in Sodium Chloride 0.9% 100 ML IV SCH (11:28)
[2021-11-07] MEDS: Enoxaparin 40 MG/0.4 ML Syringe SUBCUT SCH (12:45)
[2021-11-07] MEDS: Melatonin 3 MG Tab PO PRN (21:22)
[2021-11-08] MEDS: Albuterol/Ipratropium 3.0-0.5 MG/3 ML Neb Soln NEB SCH ×4 (06:29→20:47)
[2021-11-08] MEDS: predniSONE 20 MG Tab PO SCH (07:24)
[2021-11-08] MEDS: Magnesium Oxide 400 MG Tab PO SCH (08:05)
[2021-11-08] MEDS ORDERED: Magnesium Sulfate/Water 2 GM in Premix Bag 1 BAG IV ONE (08:44)
[2021-11-08] MEDS: Enoxaparin 40 MG/0.4 ML Syringe SUBCUT SCH (12:05)
[2021-11-08] MEDS: Melatonin 3 MG Tab PO PRN (21:18)
[2021-11-09] MEDS: Acetaminophen 325 MG Tab PO PRN ×3 (04:49→21:57)
[2021-11-09] MEDS: Albuterol/Ipratropium 3.0-0.5 MG/3 ML Neb Soln NEB SCH (05:14)
[2021-11-09] MEDS: predniSONE 20 MG Tab PO SCH (07:58)
[2021-11-09] MEDS: Magnesium Oxide 400 MG Tab PO SCH (07:59)
[2021-11-09] MEDS: Albuterol/Ipratropium 3.0-0.5 MG/3 ML Neb Soln NEB PRN (08:00)
[2021-11-09] MEDS: Enoxaparin 40 MG/0.4 ML Syringe SUBCUT SCH (11:07)
[2021-11-09] MEDS ORDERED: Phosphorus #1 250 MG Tab PO SCH (11:15)
[2021-11-09] MEDS: Melatonin 3 MG Tab PO PRN (21:57)
[2021-11-10] MEDS: predniSONE 20 MG Tab PO SCH (07:28)
[2021-11-10] MEDS: Magnesium Oxide 400 MG Tab PO SCH (08:11)
[2021-11-10] MEDS: Acetaminophen 325 MG Tab PO PRN ×2 (08:11→21:36)
[2021-11-10] MEDS: Albuterol/Ipratropium 3.0-0.5 MG/3 ML Neb Soln NEB PRN ×2 (08:58→18:24)
[2021-11-10] MEDS: Enoxaparin 40 MG/0.4 ML Syringe SUBCUT SCH (11:21)
[2021-11-10] MEDS: Melatonin 3 MG Tab PO PRN (21:36)
[2021-11-11] MEDS: predniSONE 20 MG Tab PO SCH (06:55)
[2021-11-11] MEDS: Albuterol/Ipratropium 3.0-0.5 MG/3 ML Neb Soln NEB PRN (08:00)
[2021-11-11] MEDS: Magnesium Oxide 400 MG Tab PO SCH (09:00)
== END 2021-11-11 09:50 | DRG 189 ==
LOC: JD.ED 20:51 → JD.ICU 11-02 08:17
PROVIDERS: ADMIT Internal Medicine; ATTEND Internal Medicine
PROC: 5A09557 Assistance with Respiratory Ventilation, Greater than 96 Consecutive Hours, Continuous Positive Airway Pressure (ICD-10-PCS; principal; 2021-11-01)
DX: R06.89 Other abnormalities of breathing (principal); Z87.891 Personal history of nicotine dependence; H54.7 Unspecified visual loss; J96.01 Acute respiratory failure with hypoxia; E78.00 Pure hypercholesterolemia, unspecified; J44.1 Chronic obstructive pulmonary disease with (acute) exacerbation; J44.9 Chronic obstructive pulmonary disease, unspecified; E87.2 Acidosis; Z20.822 Contact with and (suspected) exposure to COVID-19; Z79.52 Long term (current) use of systemic steroids; I25.10 Atherosclerotic heart disease of native coronary artery without angina pectoris; K21.9 Gastro-esophageal reflux disease without esophagitis; E78.5 Hyperlipidemia, unspecified; I10 Essential (primary) hypertension; F17.210 Nicotine dependence, cigarettes, uncomplicated; J96.02 Acute respiratory failure with hypercapnia; E88.09 Other disorders of plasma-protein metabolism, not elsewhere classified; R73.03 Prediabetes; E86.0 Dehydration; R53.81 Other malaise; E83.39 Other disorders of phosphorus metabolism; E83.42 Hypomagnesemia; R73.9 Hyperglycemia, unspecified; G47.30 Sleep apnea, unspecified; Z86.73 Personal history of transient ischemic attack (TIA), and cerebral infarction without residual deficits; Z78.9 Other specified health status; Z91.19 Patient's noncompliance with other medical treatment and regimen; Z99.81 Dependence on supplemental oxygen; Z79.899 Other long term (current) drug therapy; Z98.890 Other specified postprocedural states
CPT/HCPCS: 0240U; 36415; 36600; 71045; 71275; 80048; 80053; 82803; 83036; 83605; 83735; 83880; 84100; 84145; 84484; 85007; 85025; 85027; 85379; 86140; 87040; 93005; 93970; 94640; 94660; 96365; 96375; 97110; 97162; 97530; 99285; 93010; A9270-GY; J0696; J1650; J2930; J3475; J3490; J7030; J7120; J7512; J7620-GY; Q9967; U0002